=== PATIENT | female | born 1980 | race Caucasian/White ===

== ENCOUNTER → 2018-03-02 12:34 | Outpatient (CLI) | payer OTHER, SELFPAY ==
--- NOTE | 2018-03-02 12:39 | RAD_ITS ---
STUDY: X-RAY - CERVICAL SPINE REASON FOR EXAM: Female, 37 years old. Cervical radiculopathy. TECHNIQUE: 5 view(s) of the cervical spine were obtained including oblique views. COMPARISON: None FINDINGS: Normal anterior atlantoaxial articulation. Normal odontoid process. There is straightening of the normal cervical lordosis. Normal vertebral bodies and endplates. Normal disc space heights. Normal visualized intervertebral neuroforamina. The soft tissue structures are unremarkable. RAD/Cerv Spine 4 or 5 Views IMPRESSION: Straightening of the normal cervical lordosis. Electronically Signed: Vin Gonsalves MD at 14:28 EDT Tel [phone], Service support ,
== END ==
PROVIDERS: Visit Provider Chiropractor
DX: M54.12 Radiculopathy, cervical region (principal)
CPT/HCPCS: 72050

== ENCOUNTER → 2018-11-20 14:11 | Outpatient (CLI) | payer OTHER, SELFPAY ==
[2018-11-20 09:12] VITALS: BMI 28.8
== END ==
PROVIDERS: Referring Provider Physician Assistant Surgical; Visit Provider Physician Assistant Surgical
DX: J02.9 Acute pharyngitis, unspecified (principal)
CPT/HCPCS: 87081

== ENCOUNTER 2019-09-08 16:42 | Emergency (ER) | payer OTHER, SELFPAY ==
[2018-11-20 09:12] VITALS: BMI 28.8
[2019-09-08 16:42] VITALS: BP 127/78; PULSE 80; RESP 16; TEMP 37; O2SAT 99; BMI 27.4
--- NOTE | 2019-09-08 16:45 | NURSING ---
NO OLD EKGS
--- NOTE | 2019-09-08 16:47 | RAD_ITS ---
STUDY: X-RAY CHEST REASON FOR EXAM: Female, 39 years old. Chest pain TECHNIQUE: Single view of the chest was obtained COMPARISON: June 20, 2017 chest radiograph FINDINGS: No lung consolidation, pleural effusion or pneumothorax. Cardiac size within normal limits. Osseous structures demonstrate no acute abnormalities. IMPRESSION: No acute cardiopulmonary pathology seen. Electronically Signed: Luis Fernando Gandhi, at 17:21 EST Tel , Service support , RAD/Chest 1 View (Portable)
--- NOTE | 2019-09-08 16:47 | EKG12_ITS ---
Test Reason : CP Blood Pressure : / mmHG Vent. Rate : 082 BPM Atrial Rate : 082 BPM P-R Int : 180 ms QRS Dur : 084 ms QT Int : 368 ms P-R-T Axes : 058 078 067 degrees QTc Int : 429 ms Normal sinus rhythm with sinus arrhythmia Normal ECG Confirmed by RAJAT NGUYNE, LONNIE ([id number]), editorial manager SANDRO GIFFORD ([id number]) on 09/10/2019 11:44:24 AM Referred By: PRABHAKAR/ABEL Confirmed By:LONNIE EARL MD
[2019-09-08 16:54] VITALS: O2SAT 100
[2019-09-08 17:06] LABS: Absolute Lymphocyte Count 2.17 X10^3/uL (0.83-4.51); Absolute Neutrophil Count 5.1 X10^3/uL (2.0-7.7); Basophil# 0.03 X10^3/uL; Basophil% 0.4 % (0-1); Eosinophil# 0.12 X10^3/uL; Eosinophils% 1.5 % (0-5); Hematocrit 37.7 % (37-47); Hemoglobin 13.4 g/dL (12.0-15.0); Lymphocyte # 2.17 X10^3/ul (4.0); Mean Corp Hgb Conc 35.5 g/dL (32-36); Mean Corpuscular Hgb 31.2 pg (27.0-32.0); Mean Corpuscular Volume 87.9 fL (81-99); Mean Platelet Vol. 9.3 fl (6.2-12.0); Monocyte# 0.54 X10^3/uL; Monocyte% 6.7 % (0-10); NRBC Flagged by Analyzer 0 % (0-5); Neutrophil # 5.14 X10^3/uL (2.7-7.7); Platelet Count 158 K/mm3 (150-450); RBC Distribution Width CV 12.3 % (11.6-14.6); RBC Distribution Width SD 39.1 fl (35.1-43.9); Red Blood Count 4.29 M/mm3 (4.2-5.4)
[2019-09-08 17:13] LABS: International Normalized Ratio 1.1; Prothrombin Time (Protime)PT. 13.9 SECONDS (11.7-14.9)
--- NOTE | 2019-09-08 17:21 | ED.DCSUM_ITS ---
History of Present Illness Chief Complaint: Chest Pain Informant: Patient Onset: Weeks - 1 Quality: Heaviness Location: Substernal Current Severity: Moderate Maximum Severity: Moderate Worsened By: - - lying down. Not Worsened By: Exertion, Movement of Arm, Movement of Torso, Eating, Palpation, Breathing Relieved By: Nothing - has been continuous Associated Symptoms: Dyspnea - off and on, more persistent since yesterday, worse when I get anxious, - - anxiety. Negative for: Nausea, Vomiting, Diaphoresis, Cough, Fever, Lightheadedness, Acid Reflux, Palpitations Narrative: Patient has had this non-pleuritic heaviness in her chest for the past week, however since yesterday she has additionally had a left-sided dull continuous pain that is also nonpleuritic. Neither discomfort radiates. She has had periods where she randomly feels very anxious and that makes her feel short of breath, she feels like she is anxious about her symptoms though, which she has never had before. She denies any leg pain or swelling, recent travel, hospitalization, immobilization, or surgery. No history of DVT or PE. She is healthy and takes no daily prescriptions were recent [id number] medications. Past Medical History - Allergies and Home Meds Allergies/Adverse Reactions: Allergies codeine Adverse Reaction (Verified 09/08/19 16:44) Other felt light-headed and shaky Primary Care Physician: Care Physician,No Primary [NON-STAFF] - Surgical History: - - D&C, no other surgeries Lives: Spouse/ Significant Other Smoking Status: Former smoker Alcohol: None Drugs: None Review of Systems General: Denies: Chills, Fever, Sweats Eyes: Denies: Visual changes - bilaterally, Diplopia ENT: Denies: Rhinorrhea, Sore throat Cardiovascular: Reports: Chest pain. Denies: Palpitations Respiratory: Reports: Dyspnea. Denies: Cough, Dyspnea on exertion, Orthopnea Gastrointestinal: Denies: Abdominal pain, Nausea, Vomiting, Diarrhea, Melena, Hematochezia Genitourinary: Denies: Dysuria, Hematuria, Frequency Musculoskeletal: Denies: Back pain, Swelling, Extremity Pain Skin: Denies: Rash, Wounds Neurological: Denies: Headache, Weakness, Numbness Psych: Reports: Anxiety. Denies: Suicidal thoughts, Suicidal ideations Physical Exam Vital Signs/Narrative: Vital Signs Temp Pulse Resp BP Pulse Ox 09/08/19 16:54 100 09/08/19 16:42 98.6 F 80 16 127/78 H 99 Inital Vital Signs reviewed: Yes General: Well nourished, Well developed, No Acute Distress Head: Normocephalic, Atraumatic Eyes: Perrl, EOMI ENT: Moist mucous membranes, No rhinorrhea Neck: Supple, Nontender, No lymphadenopathy, No JVD Cardiovascular: Regular rate, Regular rhythm, No murmurs, Normal S1, Normal S2. Negative for: Tachycardia Respiratory: No distress, CTA bilaterally, Chest nontender Abdomen: Soft, Nontender, Nondistended, Normal bowel sounds Back: Nontender, Normal Inspection. Negative for: CVA tenderness Extremities: Nontender, No edema. Negative for: Calf Tenderness Skin: Normal color, No rash, No Trauma Neurological: Alert, Oriented x3, Cranial nerves II-XII grossly intact, Normal Strength, Normal Sensation Psychological: Normal affect - Except a little anxious, Normal Mood Diagnostic/Tx/Re-eval Impressions Chest X-Ray 09/08/19 16:47 09/08/19 16:47 Chest 1 View (Portable) [RAD] Stat Laboratory Results 09/08/19 09/08/19 09/08/19 16:50 16:50 16:50 WBC 8.0 RBC 4.29 Hgb 13.4 Hct 37.7 MCV 87.9 MCH 31.2 MCHC 35.5 RDW Std Deviation 39.[address] 12.3 Plt Count 158 MPV 9.3 Immature Gran % (Auto) 0.400 Neut % (Auto) 64.0 Lymph % (Auto) 27.0 [place] % (Auto) 6.7 Eos % (Auto) 1.5 Baso % (Auto) 0.4 Absolute Neuts (auto) 5.1 Absolute Lymphs (auto) 2.17 Nucleated RBC % 0 PT 13.9 INR 1.1 D-Dimer Quant (PE/DVT) Sodium 141 Potassium 3.6 Chloride 107 Carbon Dioxide 28.0 Anion Gap 6 BUN 15 Creatinine 0.69 Estim Creat Clear Calc 102.47 Est GFR (MDRD) Af Amer 121 Est GFR (MDRD) Non-Af 100 BUN/Creatinine Ratio 21.7 H Glucose 109 H Calcium 9.2 Troponin I < 0.015 09/08/19 16:50 WBC RBC Hgb Hct MCV MCH MCHC RDW Std Deviation RDW Coeff of Ct Plt Count MPV Immature Gran % (Auto) Neut % (Auto) Lymph % (Auto) [place] % (Auto) Eos % (Auto) Baso % (Auto) Absolute Neuts (auto) Absolute Lymphs (auto) Nucleated RBC % PT INR D-Dimer Quant (PE/DVT) 0.38 Sodium Potassium Chloride Carbon Dioxide Anion Gap BUN Creatinine Estim Creat Clear Calc Est GFR (MDRD) Af Amer Est GFR (MDRD) Non-Af BUN/Creatinine Ratio Glucose Calcium Troponin I - Rhythm Strip Rhythm Strip: Sinus Rhythm Rate: 82 Ectopy: None - EKG Initial EKG Interpretation: Sinus Rhythm, No Acute Injury Pattern - normal EKG. normal axis/intervals. Treatment: GI Cocktail - Medical Decision Making Her work-up is completely negative for anything dangerous here tonight. Do not suspect dissection, pulmonary embolus is ruled out with a negative d-dimer. Her vital signs are normal, and her cardiac work-up is completely normal. She was given a GI cocktail given that esophageal disorders are on the differential diagnosis, she states she does not think the medication helped but the dull pain she was having on the left side is gone and now she just has the mild pressure. I offered her nitroglycerin in case this is esophageal spasm but she declines. She would like something for anxiety, she thinks that may be linked, I told her I have no problem prescribing her short course of Vistaril, and she is advised to follow-up with her doctor. She is comfortable with going home and with this plan. ED Disposition - Plan for ED Patient: Disposition: Home or Assisted Living Diagnosis: Chest pain, unspecified Instructions: CHEST PAIN, NonCardiac Prescriptions: Hydroxyzine Pamoate [Vistaril] 50 mg PO 4X/DAY PRN PRN #20 cap PRN Reason: Anxiety Prescription Printed Referrals: Doctor,Your [STAFF PHYSICIAN] - 5-7 Days
[2019-09-08 17:24] LABS: Anion Gap 6 (5-15); BUN 15 mg/dL (7-18); BUN/Creat Ratio 21.7 RATIO (10-20); Calcium,Total 9.2 mg/dL (8.5-10.1); Chloride 107 mmol/L (98-107); Creatinine, Serum 0.69 mg/dL (0.55-1.02); EST Glomerular Filtration Rate 100 mL/min (>60); Est Glom Filt Rate - Afr Amer 121 mL/min (>60); Estimated Creatinine Clearance 102.47 ml/min; Glucose 109 mg/dL (74-106); Potassium 3.6 mmol/L (3.5-5.1); Sodium Level 141 mmol/L (136-145)
[2019-09-08 17:47] LABS: D-Dimer Quantitative (DVT/PE) 0.38 FEU/ug/m (0.27-0.49)
[2019-09-08 19:10] VITALS: PULSE 77; RESP 14; O2SAT 100
[2019-09-08] MEDS: Mag Hydrox/Al Hydrox/Simeth 30 ML UDC PO (19:46)
[2019-09-08 20:20] VITALS: PULSE 76; RESP 12; O2SAT 97
[2019-09-08] MEDS: hydrOXYzine PAM 25 MG Capsule 50 MG PO (20:21)
== END 2019-09-08 20:23 | disposition home or self-care (01) ==
PROVIDERS: Emergency Provider Emergency Medicine; Family Provider Family Medicine; PCP Family Medicine
DX: R07.89 Other chest pain (principal); R06.00 Dyspnea, unspecified; F41.9 Anxiety disorder, unspecified; Z87.891 Personal history of nicotine dependence
CPT/HCPCS: 71045; 80048; 84484; 85025; 85379; 85610; 93005; 99285; A4216

== ENCOUNTER → 2019-09-13 14:39 | Outpatient (CLI) | payer OTHER, SELFPAY ==
[2019-09-13 07:34] VITALS: BMI 27.4
== END ==
PROVIDERS: Referring Provider Physician Assistant Surgical; Visit Provider Physician Assistant Surgical
DX: J02.9 Acute pharyngitis, unspecified (principal)
CPT/HCPCS: 87070

== ENCOUNTER → 2020-09-04 11:41 | Outpatient (CLI) | payer OTHER, SELFPAY ==
[2019-09-13 07:34] VITALS: BMI 27.4
[2020-09-04 12:16] LABS: Absolute Lymphocyte Count 1.23 X10^3/uL (0.83-4.51); Basophil# 0.02 X10^3/uL; Basophil% 0.2 % (0-1); Eosinophil# 0.06 X10^3/uL; Eosinophils% 0.7 % (0-5); Hematocrit 34.5 % (37-47); Hemoglobin 12.3 g/dL (12.0-15.0); Lymphocyte # 1.23 X10^3/ul (4.0); Lymphocyte % 13.9 % (19-41); Mean Corp Hgb Conc 35.7 g/dL (32-36); Mean Corpuscular Volume 89.8 fL (81-99); Mean Platelet Vol. 9.5 fl (6.2-12.0); Monocyte# 0.45 X10^3/uL; Monocyte% 5.1 % (0-10); NRBC Flagged by Analyzer 0 % (0-5); Neutrophil # 7.02 X10^3/uL (2.7-7.7); Neutrophil % 79.4 % (47-70); Platelet Count 156 K/mm3 (150-450); RBC Distribution Width CV 13.5 % (11.6-14.6); Red Blood Count 3.84 M/mm3 (4.2-5.4); White Blood Count 8.8 K/mm3 (4.4-11.0)
[2020-09-04 13:22] LABS: HIV - WCH Non-Reactive (Nonreactive); Hepatitis B Surface Antigen Non-Reactive (Nonreactive); Hepatitis C Antibody Non-Reactive (Nonreactive); Rubella IgG Reactive (Nonreactive)
[2020-09-08 03:07] LABS: Chlamydia By Nucleic Acid AMP Negative (Negative)
[2020-09-08 10:41] LABS: Gonococcus By Nucleic Acid AMP Negative (Negative)
[2020-09-09 10:11] LABS: HPV APTIMA, High Risk Negative (Negative); HPV Reflexed? YES, CHARGE PATIENT
[2020-09-10 02:50] LABS: Prenatal RPR NONREACTIVE (NONREACTIVE)
== END ==
PROVIDERS: Visit Provider Student in an Organized Health Care Education/Training Program
DX: Z34.82 Encounter for supervision of other normal pregnancy, second trimester (principal); Z12.4 Encounter for screening for malignant neoplasm of cervix; Z11.3 Encounter for screening for infections with a predominantly sexual mode of transmission
CPT/HCPCS: 36415; 85025; 86703; 86762; 86803; 87086; 87088; 87340; 87491; 87591; 87624; 88175; G0145

== ENCOUNTER → 2020-10-19 09:50 | Outpatient (CLI) | payer OTHER, SELFPAY ==
[2019-09-13 07:34] VITALS: BMI 27.4
--- NOTE | 2020-10-19 09:57 | EKG12_ITS ---
Test Reason : Blood Pressure : / mmHG Vent. Rate : 074 BPM Atrial Rate : 074 BPM P-R Int : 168 ms QRS Dur : 088 ms QT Int : 384 ms P-R-T Axes : 061 071 056 degrees QTc Int : 426 ms Normal sinus rhythm with sinus arrhythmia Normal ECG Confirmed by JIMBO NGUYEN, HANY ([id number]), greeting card editor ALLA MARTINEZ ([id number]) on 10/22/2020 10:22:56 AM Referred By: Laure John Confirmed By:LIZANDRO CHOI MD
== END ==
PROVIDERS: PCP Family Medicine; Referring Provider Student in an Organized Health Care Education/Training Program; Visit Provider Student in an Organized Health Care Education/Training Program
DX: R00.0 Tachycardia, unspecified (principal)
CPT/HCPCS: 93005

== ENCOUNTER → 2020-12-25 14:03 | Outpatient (CLI) | payer OTHER, SELFPAY ==
[2019-09-13 07:34] VITALS: BMI 27.4
--- NOTE | 2020-12-25 14:06 | VDLE_ITS ---
Reason For Study: EDEMA/SWELLING RIGHT LEFT GSV is normal. GSV is normal. CFV is compressible, spontaneous, phasic, CFV is compressible, spontaneous, phasic, competent and demonstrates normal competent, and demonstrates normal augmentation. augmentation. FV is compressible, spontaneous, phasic, FV is compressible, spontaneous, phasic, competent and demonstrates normal competent and demonstrates normal augmentation. augmentation. POP V is compressible, spontaneous, phasic, POP V is compressible, spontaneous, phasic, competent and demonstrates normal competent and demonstrates normal augmentation. augmentation. T/P Trunk is compressible. T/P Trunk is compressible. PTV is compressible. PTV is compressible. RT PerV is compressible. LT PerV is compressible. Procedure Exam performed in department. A preliminary report was called and/or faxed to DR ROGERS. Interpretation Summary Deep veins of the lower extremities are bilaterally patent and compressible segmentally. There is no evidence of deep vein thrombosis on either side. Valvular competence appears intact within the proximal deep venous systems bilaterally. The great saphenous veins appear bilaterally patent and compressible segmentally. Ordering Physician: Jason Rogers Referring Physician: NATHANIEL TYLER Performed By: Velia Mello, MAN, RVT
== END ==
PROVIDERS: PCP Family Medicine; Visit Provider Internal Medicine Pulmonary Disease
DX: R06.00 Dyspnea, unspecified (principal); R60.9 Edema, unspecified
CPT/HCPCS: 93970

== ENCOUNTER → 2020-12-31 09:02 | Outpatient (CLI) | payer OTHER, SELFPAY ==
[2019-09-13 07:34] VITALS: BMI 27.4
[2020-12-31 11:00] LABS: Hemoglobin 10.8 g/dL (12.0-15.0); Mean Corp Hgb Conc 34.8 g/dL (32-36); Mean Corpuscular Hgb 33.1 pg (27.0-32.0); Mean Corpuscular Volume 95.1 fL (81-99); Mean Platelet Vol. 9.1 fl (6.2-12.0); Platelet Count 159 K/mm3 (150-450); RBC Distribution Width CV 14.9 % (11.6-14.6); RBC Distribution Width SD 51.1 fl (35.1-43.9); Red Blood Count 3.26 M/mm3 (4.2-5.4); White Blood Count 8.9 K/mm3 (4.4-11.0)
[2020-12-31 11:14] LABS: Glucose Challenge Gest 1H 50g 178 mg/dL (70-140)
== END ==
PROVIDERS: PCP Family Medicine; Visit Provider Student in an Organized Health Care Education/Training Program
DX: Z34.82 Encounter for supervision of other normal pregnancy, second trimester (principal)
CPT/HCPCS: 36415; 82950; 85027; 86850

== ENCOUNTER → 2020-12-31 14:03 | Outpatient (CLI) | payer OTHER, SELFPAY ==
[2019-09-13 07:34] VITALS: BMI 27.4
--- NOTE | 2020-12-31 14:04 | ECHOD_ITS ---
Reason For Study: DYSPNEA/EDEMA Procedure This was a 2D Doppler, Color Flow transthoracic echocardiogram. Exam performed in department. Left Ventricle Normal LV size. The estimated ejection fraction is 55 %. No evidence for diastolic dysfunction. No regional wall motion abnormalities noted. Right Ventricle Normal RV size. Normal systolic function. Atria Normal left atrium. Normal right atrium. No doppler evidence for ASD. Mitral Valve There is no mitral valve stenosis. Trivial mitral valve insufficiency. Tricuspid Valve There is no tricuspid stenosis. Trivial tricuspid valve insufficiency. Unable to estimate RV systolic pressure due to insufficient tricuspid regurgitant envelope. Aortic Valve Trisinus/trileaflet aortic valve. There is no aortic stenosis. No aortic valve insufficiency. Pulmonic Valve There is no pulmonic valvular stenosis. No pulmonic valve insufficiency. Great Vessels Normal aortic root. Pericardium/Pleural No pericardial effusion. MMode/2D Measurements & Calculations LVIDd: 4.6 cm IVSd: 0.72 cm Ao root diam: 2.9 cm LVIDs: 2.9 cm LVPWd: 0.92 cm RVDd: 3.3 cm FS: 35.8 % LAV(MOD-bp): 46.6 ml LVAd ap4: 32.3 cm2 SV(MOD-sp4): 68.9 ml LAV(MOD-bp) Indexed: 24.4 ml/m2 EDV(MOD-sp4): 100.2 ml LAV(MOD-sp2): 40.4 ml EDV(sp4-el): 101.9 ml LAV(MOD-sp4): 54.4 ml LVAs ap4: 16.0 cm2 ESV(MOD-sp4): 31.3 ml ESV(sp4-el): 30.3 ml EF(MOD-sp4): 68.8 % EF(sp4-el): 70.3 % SV(sp4-el): 71.6 ml LA A4 area: 19.7 cm2 LA dimension(2D): 3.3 cm RA A4 area: 17.7 cm2 Time Measurements MV dec time: 0.20 sec Doppler Measurements & Calculations MV E max dylon: 121.4 cm/sec Lat Peak E' Dylon: 19.7 cm/sec Med Peak E' Dylon: 15.1 cm/sec MV A max dylon: 77.8 cm/sec E/E' lat: 6.2 E/E' med: 8.0 MV E/A: 1.6 Ao V2 max: 186.4 cm/sec LV V1 max: 179.0 cm/sec PA V2 max: 126.2 cm/sec Ao max P.9 mmHg LV V1 max P.8 mmHg TR max dylon: 273.1 cm/sec TR max P.2 mmHg Interpretation Summary The estimated ejection fraction is 55 %. No evidence for diastolic dysfunction. Trivial mitral valve insufficiency. Ordering Physician: Jason Rogers Referring Physician: NATHANIEL TYLER Performed By: Lurdes Lynn RDCS
== END ==
PROVIDERS: PCP Family Medicine; Referring Provider Internal Medicine Pulmonary Disease; Visit Provider Internal Medicine Pulmonary Disease
DX: R06.00 Dyspnea, unspecified (principal); R60.9 Edema, unspecified
CPT/HCPCS: 93306

== ENCOUNTER → 2021-01-04 06:46 | Outpatient (CLI) | payer OTHER, SELFPAY ==
[2019-09-13 07:34] VITALS: BMI 27.4
[2021-01-04 08:25] LABS: Glucose GTT-Gestational 1 Hr 213 mg/dL (<190)
[2021-01-04 08:27] LABS: Glucose GTT-Gestation. Fasting 105 mg/dL (<105)
[2021-01-04 09:38] LABS: Glucose GTT-Gestational 2 Hr 149 mg/dL (<165)
[2021-01-04 10:58] LABS: Glucose GTT-Gestational 3 Hr 99 L (<145)
== END ==
PROVIDERS: PCP Family Medicine; Referring Provider Student in an Organized Health Care Education/Training Program; Visit Provider Student in an Organized Health Care Education/Training Program
DX: O99.810 Abnormal glucose complicating pregnancy (principal); Z3A.00 Weeks of gestation of pregnancy not specified
CPT/HCPCS: 36415; 82951; 82952

== ENCOUNTER 2021-01-20 10:30 | Outpatient (RCR) | payer OTHER, SELFPAY ==
[2019-09-13 07:34] VITALS: BMI 27.4
== END 2021-01-20 23:59 ==
LOC: DC 10:30
PROVIDERS: PCP Family Medicine; Visit Provider Student in an Organized Health Care Education/Training Program
DX: O24.410 Gestational diabetes mellitus in pregnancy, diet controlled (principal); Z3A.00 Weeks of gestation of pregnancy not specified
CPT/HCPCS: 97802; G0108

== ENCOUNTER → 2021-02-02 16:02 | Outpatient (CLI) | payer OTHER, SELFPAY ==
[2019-09-13 07:34] VITALS: BMI 27.4
--- NOTE | 2021-02-02 16:05 | VDLE_ITS ---
Reason For Study: edema RIGHT GSV is normal. CFV is compressible, spontaneous, phasic, competent and demonstrates normal augmentation. FV is compressible, spontaneous, phasic, competent and demonstrates normal augmentation. POP V is compressible, spontaneous, phasic, competent and demonstrates normal augmentation. T/P Trunk is compressible. PTV is compressible. RT PerV is compressible. Procedure This is a venous duplex using B-mode, color flow and spectral Doppler. Exam performed in department. The exam was abbreviated due to the COVID 19 protocol. The exam was diagnostic. A preliminary report was called and/or faxed to Laure John. VL/Venous Duplex US, Unilateral Interpretation Summary Deep veins of the right lower extremity are patent and compressible segmentally . There is no evidence of right lower extremity deep vein thrombosis. Valvular competence trev ears intact within the proximal deep venous system on the right . The right great saphenous vein a ppears patent and compressible segmentally. Ordering Physician: Laure John Performed By: Alexander Mares RVT
== END ==
PROVIDERS: PCP Family Medicine; Referring Provider Student in an Organized Health Care Education/Training Program; Visit Provider Student in an Organized Health Care Education/Training Program
DX: R60.0 Localized edema (principal)
CPT/HCPCS: 93971

== ENCOUNTER 2021-02-04 13:00 | Outpatient (RCR) | payer OTHER, SELFPAY ==
[2019-09-13 07:34] VITALS: BMI 27.4
== END 2021-02-11 23:59 | disposition home or self-care (01) ==
LOC: DC 13:00
PROVIDERS: PCP Family Medicine; Visit Provider Student in an Organized Health Care Education/Training Program
DX: O24.410 Gestational diabetes mellitus in pregnancy, diet controlled (principal); Z3A.00 Weeks of gestation of pregnancy not specified

== ENCOUNTER → 2021-02-15 | Outpatient (CLI) | payer OTHER, SELFPAY ==
[2019-09-13 07:34] VITALS: BMI 27.4
== END | disposition home or self-care (01) ==
LOC: LABSPEC 16:42
PROVIDERS: PCP Family Medicine; Visit Provider Student in an Organized Health Care Education/Training Program
DX: Z36.85 Encounter for antenatal screening for Streptococcus B (principal)
CPT/HCPCS: 87081

== ENCOUNTER → 2021-03-03 14:57 | Outpatient (CLI) | payer OTHER, SELFPAY ==
[2019-09-13 07:34] VITALS: BMI 27.4
== END ==
PROVIDERS: PCP Family Medicine; Referring Provider Student in an Organized Health Care Education/Training Program; Visit Provider Student in an Organized Health Care Education/Training Program
DX: Z03.818 Encounter for observation for suspected exposure to other biological agents ruled out (principal)
CPT/HCPCS: 87635; C9803; U0002

== ENCOUNTER 2021-03-10 07:15 | Inpatient (IN) | payer OTHER, SELFPAY ==
[2019-09-13 07:34] VITALS: BMI 27.4
[2021-03-10] VITALS (27 sets, daily range): BP systolic 121–153; BP diastolic 62–83; PULSE 71–89; RESP 16; TEMP 36.4–37.1; BMI 35.1
[2021-03-10] MEDS: Lactated Ringers 1,000 ML 50 ML IV (07:45)
[2021-03-10 07:57] LABS: Absolute Lymphocyte Count 1.02 X10^3/uL (0.83-4.51); Absolute Neutrophil Count 5.9 X10^3/uL (2.0-7.7); Basophil# 0.02 X10^3/uL; Basophil% 0.3 % (0-1); Eosinophil# 0.05 X10^3/uL; Eosinophils% 0.7 % (0-5); Hemoglobin 11.2 g/dL (12.0-15.0); Lymphocyte # 1.02 X10^3/ul (0.83-4.51); Lymphocyte % 13.3 % (19-41); Mean Corp Hgb Conc 33.9 g/dL (32-36); Mean Corpuscular Hgb 29.6 pg (27.0-32.0); Mean Corpuscular Volume 87.3 fL (81-99); Mean Platelet Vol. 9.3 fl (6.2-12.0); Monocyte# 0.58 X10^3/uL; Monocyte% 7.6 % (0-10); NRBC Flagged by Analyzer 0 % (0-5); Neutrophil # 5.94 X10^3/uL (2.7-7.7); Neutrophil % 77.2 % (47-70); Platelet Count 163 K/mm3 (150-450); RBC Distribution Width CV 13.7 % (11.6-14.6); RBC Distribution Width SD 42.9 fl (35.1-43.9); Red Blood Count 3.78 M/mm3 (4.2-5.4); White Blood Count 7.7 K/mm3 (4.4-11.0)
--- NOTE | 2021-03-10 08:30 | NURSING ---
BGT 85
--- NOTE | 2021-03-10 08:41 | HP.PCM.OB_ITS ---
HPI - General General Date of Admission: 03/10/21 HPI Narrative SHALOM TYLER, is a 40 F 17 para [id number] presenting for scheduled induction of labor for AMA and GDMA2 on insulin, well controlled. She is without complaints. Maternal Data Information DUNIA Calculator Estimated Delivery Date Method Current WG Current Estimate 03/11/21 LMP (Certain) 39w 6d Final DUNIA: 03/11/21 Final DUNIA Source: US <20 weeks Gestational age: 39.6 [facility], [facility] Medical History (Updated 03/10/21 @ 20:[address] Martina Hernandez MD) Anxiety Asthma Chronic neck and back pain Gestational diabetes Headache History of endometritis history of parametritis History of pre-eclampsia Shoulder pain Superficial varicosities Home Medications aspirin [Baby Aspirin] 81 mg PO DAILY 03/10/21 [History Last Taken 03/09/21 08:00 81 mg] fluticasone furoate [Arnuity Ellipta] 1 inh INHALATION DAILY 03/10/21 [History Last Taken 03/10/21 06:00 1 puff] insulin glargine [Basaglar KwikPen U-100 Insulin] 15 unit SUBCUT QHS 03/10/21 [History Last Taken 03/09/21 22:00 15 units] [id number] [] 1 tab PO DAILY 03/10/21 [History Last Taken 03/09/21 08:00 1 tab] Allergy/AdvReac Type Severity Reaction Status Date / Time codeine AdvReac Other Verified 03/10/21 07:47 Family History (Updated 03/10/21 @ 08:[address] Martina Hernandez MD) Grandmother Breast cancer Other Diabetes Surgical History History of D&C Social History Smoking Status: Never smoker History 17 Elective abortions Hx Para 8 Spontaneous abortions 8 Hx # Term Pregnancies 8 Ectopic pregnancies Hx # Pregnancies Multiple births 0 # of living children 8 Visit Details Expected Delivery Route/Plan Anticipate Plans Glucose monitoring Pitocin Reviewed labor and delivery related risks including risk for shoulder dystocia and associated sequelae. Consents signed. Pt and given opportunity to ask questions and questions answered to their satisfaction. NST FHR Rate Baby A Baseline: 150 Variability:: Moderate Accelerations:: 15 x 15 Decelerations:: None NST Reactive:: Yes FHR Category:: Category I Uterine Activity:: 11/01 Assessment Assessment Detail: Category I Vital Signs Vital Signs Vital Signs: 03/10/21 07:39 Pulse Rate 74 Blood Pressure 138/74 H BP Systolic 138 BP Diastolic 74 Physical Exam Const alert, oriented x3, no apparent distress, healthy appearing and well nourished General Appearance: cooperative Orientation / Consciousness: awake, oriented to person, oriented to place and oriented to time HEENT normocephalic Resp normal respiratory effort and clear to auscultation bilaterally Cardio regular rate and regular rhythm GI soft to palpation and non-tender Inspection: gravid Manual OB Exam: dilated 3, effaced 50 and station -3 Labs Labs Labs: Blood Type B NEGATIVE Antibody Screen NEGATIVE Hct 33.0 % (37-47) L Hgb 11.2 g/dL (12.0-15.0) L Obstetrics US Rubella IgG Antibody Reactive (Nonreactive) Hep Bs Antigen Non-Reactive (Nonreactive) Neisseria gonorrhoeae DNA (EVIN) Negative (Negative) HIV 1&2 Antibody Non-Reactive (Nonreactive) C.trachomatis DNA (PCR) Negative (Negative) Glucose 1 Hr 50 gm 178 mg/dL (70-140) H Group B Strep DNA Negative (Negative) Rhogam given: No Assessment & Plan (1) Gestational diabetes: QUALIFIERS: Gestational diabetes mellitus control: insulin- controlled Trimester: third trimester Qualified Code(s): O24.414 - Gestational diabetes mellitus in , insulin controlled (2) 39 weeks gestation of :
[2021-03-10] MEDS: Oxytocin 30 units/NS 500 ml 30 UNITS/500 ML IV.SOLN IV (09:10)
--- NOTE | 2021-03-10 09:35 | NURSING ---
BGT 80
[2021-03-10 11:37] LABS: Bedside Glucose 80 mg/dL (70-110)
[2021-03-10 11:37] LABS: Bedside Glucose 85 mg/dL (70-110)
--- NOTE | 2021-03-10 13:03 | PCM.PN.OB ---
Subjective Subjective Contractions intensify. Objective Data Objective Data Vital Signs: Vital Signs Temp Pulse BP 98.5 F 75 136/75 H 03/10/21 12:37 03/10/21 12:38 03/10/21 12:38 Weight: 98.6 kg Body Mass Index (BMI) 35.1 Intake & Output: Intake and Output for Last 24 Hours 03/08/21 03/09/21 03/10/21 23:59 23:59 23:59 Intake Total 10.53 / 10.53 Balance 10.53 / 10.53 Lab / Micro Data Result Diagrams: 03/10/21 07:45 Labs: Laboratory Results - last 24 hr 03/10/21 03/10/21 03/10/21 07:45 07:45 08:36 WBC 7.7 RBC 3.78 L Hgb 11.2 L Hct 33.0 L MCV 87.3 MCH 29.6 MCHC 33.9 RDW Std Deviation 42.[address] 13.7 Plt Count 163 MPV 9.3 Immature Gran % (Auto) 0.900 Neut % (Auto) 77.2 H Lymph % (Auto) 13.3 L [place] % (Auto) 7.6 Eos % (Auto) 0.7 Baso % (Auto) 0.3 Absolute Neuts (auto) 5.9 Absolute Lymphs (auto) 1.02 Nucleated RBC % 0 POC Glucose 85 Blood Type B NEGATIVE Antibody Screen NEGATIVE 03/10/21 09:39 WBC RBC Hgb Hct MCV MCH MCHC RDW Std Deviation RDW Coeff of Ct Plt Count MPV Immature Gran % (Auto) Neut % (Auto) Lymph % (Auto) [place] % (Auto) Eos % (Auto) Baso % (Auto) Absolute Neuts (auto) Absolute Lymphs (auto) Nucleated RBC % POC Glucose 80 Blood Type Antibody Screen Physical Exam Const alert, oriented x3 and no apparent distress Manual OB Exam: dilated 4cm, effaced 50, station -3 and other moderate and midposition NST FHR Rate Baby A Baseline: 140 Variability:: Moderate Accelerations:: 15 x 15 Decelerations:: None NST Reactive:: Yes FHR Category:: Category I Uterine Activity:: 12/30 Assessment & Plan (1) 39 weeks gestation of : PLAN: Amniotomy with clear fluid. Will continue pitocin as tolerated by mother and fetus. Cat I FHR (2) Gestational diabetes: PLAN: Euglycemia, continue to monitor per protocol.
[2021-03-10 13:41] LABS: Bedside Glucose 74 mg/dL (70-110)
[2021-03-10 14:46] LABS: Bedside Glucose 82 mg/dL (70-110)
[2021-03-10 15:41] LABS: Bedside Glucose 74 mg/dL (70-110)
[2021-03-10] MEDS: Oxytocin 30 units/NS 500 ml 30 UNITS/500 ML IV.SOLN 334 UNITS IV (16:44)
[2021-03-10 17:26] LABS: Bedside Glucose 94 mg/dL (70-110)
[2021-03-10] MEDS: Ibuprofen 600 MG Tablet PO (19:16)
[2021-03-10] MEDS: Methylergonovine 0.2 MG/ML Ampul IM (19:18)
--- NOTE | 2021-03-10 20:40 | EX.PCM.OBRPT ---
Assessment & Plan (1) Gestational diabetes: QUALIFIERS: Gestational diabetes mellitus control: insulin-controlled Trimester: third trimester Qualified Code(s): O24.414 - Gestational diabetes mellitus in , insulin controlled PLAN: Fasting am blood sugar tomorrow (2) (spontaneous vaginal delivery): PLAN: Routine care Maternal Data Information DUNIA Calculator Estimated Delivery Date Method Current WG Current Estimate 03/11/21 LMP (Certain) 40w 1d Vaginal Delivery Maternal Presentation Maternal Presentation: Medically Indicated Induction Type of Induction: Pitocin and Amniotomy Medical Reason for Induction: Maternal Medical Condition: list: (AMA, gestational diabetes) Operative Information Date of Procedure: 03/10/21 Pre-Operative Diagnosis: 39 6/7 weeks gestation, GDMA2, AMA Post-Operative Diagnosis: 39 6/7 weeks gestation, GDMA2, AMA Surgery / Procedure Performed: Spontaneous Vaginal Delivery Type of Anesthesia: None Estimated Blood Loss: 300 ml Findings Description of Procedure: Patient was FD and pushed to to deliver head. mouth and nares were bulb suctioned on the perineum. The shoulders delivered with ease revealing a vigorous . The cord was doubly clamped and cut. Cord blood was obtained. The placenta delivered spontaneously and appeared intact on inspection. A first degree vaginal laceration was hemostatic, no repair indicated. Presentation: Vertex Amniotic Membrane Rupture Type: Artificial Amniotic Fluid Description: Clear Placental Delivery Description: Spontaneous Placenta Disposition: [facility] Cord Vessel Description: 3 Vessels Cord Entanglement: None A Gender: Male (1 minute): 8 (5 minute): 9 Delayed Cord Clamping: Yes Post Vaginal Delivery Medications Given After Delivery: IM [place] Episiotomy Description: None Laceration: Midline and Vaginal Extension/lac Complication Complications: None
[2021-03-10] MEDS: Acetaminophen 500 MG Tablet 1000 MG PO (23:21)
[2021-03-11] VITALS (7 sets, daily range): BP systolic 104–128; BP diastolic 59–69; PULSE 68–83; RESP 16–18; TEMP 36.2–36.6; O2SAT 98
[2021-03-11] MEDS: Ibuprofen 600 MG Tablet PO ×3 (01:34→16:59)
[2021-03-11 05:13] LABS: Hematocrit 30.6 % (37-47); Hemoglobin 10.5 g/dL (12.0-15.0); Mean Corp Hgb Conc 34.3 g/dL (32-36); Mean Corpuscular Hgb 30.2 pg (27.0-32.0); Mean Corpuscular Volume 87.9 fL (81-99); Mean Platelet Vol. 9.5 fl (6.2-12.0); Platelet Count 150 K/mm3 (150-450); RBC Distribution Width CV 13.9 % (11.6-14.6); RBC Distribution Width SD 43.8 fl (35.1-43.9); Red Blood Count 3.48 M/mm3 (4.2-5.4); White Blood Count 11.6 K/mm3 (4.4-11.0)
[2021-03-11 05:30] LABS: ALB/GLOB Ratio 0.7 RATIO (0.9-2.4); AST(SGOT) 25 U/L (15-37); Alanine Aminotransfer ALT/SGPT 16 U/L (13-56); Albumin, Serum 2.3 g/dL (3.2-5.0); Alkaline Phosphatase 137 U/L (45-117); Anion Gap 7 (5-15); BUN 14 mg/dL (7-18); BUN/Creat Ratio 22.1 RATIO (10-20); Calcium,Total 8.5 mg/dL (8.5-10.1); Chloride 106 mmol/L (98-107); Creatinine, Serum 0.63 mg/dL (0.55-1.02); EST Glomerular Filtration Rate 110 mL/min (>60); Est Glom Filt Rate - Afr Amer 133 mL/min (>60); Estimated Creatinine Clearance 111.12 ml/min; Globulin 3.5 g/dL (2.2-4.2); Glucose 84 mg/dL (74-106); Potassium 3.9 mmol/L (3.5-5.1); Protein, Total 5.8 g/dL (6.4-8.2); Sodium Level 136 mmol/L (136-145); Uric Acid 6.5 mg/dL (2.6-6.0)
[2021-03-11 07:00] LABS: Bedside Glucose 101 mg/dL (70-110)
[2021-03-11] MEDS: Prenatal Vits Tablet 1 TABLET PO (07:37)
[2021-03-11] MEDS: Dibucaine 30 GM Tube 1 APPLIC TOPICAL (07:45)
[2021-03-11] MEDS: Budesonide Respules 0.5 MG/2 ML AMPUL.NEB. INHALATION (07:49)
--- NOTE | 2021-03-11 09:32 | PN.OBGYN_ITS ---
Subjective Subjective No issues overnight. Denies headache, vision changes, shortness of breath, swelling. Denies heavy lochia. She feels well and is out of bed. No voiding difficulties. is feeding well. Objective Data Objective Data Vital Signs: Vital Signs Temp Pulse Resp BP Pulse Ox 97.3 F L 70 16 119/63 98 03/11/21 07:50 03/11/21 07:52 03/11/21 07:52 03/11/21 07:50 03/11/21 07:52 Oxygen Delivery Method Room Air Weight: 98.6 kg Body Mass Index (BMI) 35.1 Intake & Output: Intake and Output for Last 24 Hours 03/09/21 03/10/21 03/11/21 23:59 23:59 23:59 Intake Total 1005.57 / 1005.57 Balance 1005.57 / 1005.57 Lab / Micro Data Result Diagrams: 03/11/21 05:05 03/11/21 05:05 Labs: Laboratory Results - last 24 hr 03/10/21 03/10/21 03/10/21 08:36 09:39 13:36 WBC RBC Hgb Hct MCV MCH MCHC RDW Std Deviation RDW Coeff of Ct Plt Count MPV Sodium Potassium Chloride Carbon Dioxide Anion Gap BUN Creatinine Estim Creat Clear Calc Est GFR (MDRD) Af Amer Est GFR (MDRD) Non-Af BUN/Creatinine Ratio Glucose Uric Acid Calcium Total Bilirubin AST ALT Alkaline Phosphatase Total Protein Albumin Globulin Albumin/Globulin Ratio POC Glucose 85 80 74 03/10/21 03/10/21 03/10/21 14:41 15:34 17:18 WBC RBC Hgb Hct MCV MCH MCHC RDW Std Deviation RDW Coeff of Ct Plt Count MPV Sodium Potassium Chloride Carbon Dioxide Anion Gap BUN Creatinine Estim Creat Clear Calc Est GFR (MDRD) Af Amer Est GFR (MDRD) Non-Af BUN/Creatinine Ratio Glucose Uric Acid Calcium Total Bilirubin AST ALT Alkaline Phosphatase Total Protein Albumin Globulin Albumin/Globulin Ratio POC Glucose 82 74 94 03/11/21 03/11/21 03/11/21 05:05 05:05 06:49 WBC 11.6 H RBC 3.48 L Hgb 10.5 L Hct 30.6 L MCV 87.9 MCH 30.2 MCHC 34.3 RDW Std Deviation 43.[address] 13.9 Plt Count 150 MPV 9.5 Sodium 136 Potassium 3.9 Chloride 106 Carbon Dioxide 23.0 Anion Gap 7 BUN 14 Creatinine 0.63 Estim Creat Clear Calc 111.12 Est GFR (MDRD) Af Amer 133 Est GFR (MDRD) Non-Af 110 BUN/Creatinine Ratio 22.1 H Glucose 84 Uric Acid 6.5 H Calcium 8.5 Total Bilirubin 0.30 AST 25 ALT 16 Alkaline Phosphatase 137 H Total Protein 5.8 L Albumin 2.3 L Globulin 3.5 Albumin/Globulin Ratio 0.7 L POC Glucose 101 Physical Exam Const alert, oriented x3 and no apparent distress Resp normal respiratory effort and normal air movement Cardio regular rate, regular rhythm, S1 normal heart sound and S2 normal heart sound Uterus Palpation: uterus fundus firm and other OB fundus nontender Extremity no calf tenderness Neuro oriented x3 Assessment & Plan (1) (spontaneous vaginal delivery): PLAN: Routine care Rh negative, f/u bleed (2) Gestational diabetes: QUALIFIERS: Gestational diabetes mellitus control: insulin- controlled Trimester: third trimester Qualified Code(s): O24.414 - Gestational diabetes mellitus in , insulin controlled PLAN: Fasting am FS 101 Plan for 2h ogtt at 6-12 weeks (3) Gestational [-induced] hypertension without significant proteinuria, complicating the puerperium: PLAN: Uric acid elevated, but other labs wnl Continue to monitor BPs Prior hx preeclampsia
[2021-03-11] MEDS: Senna/Docusate Sodium 1 Tablet PO (10:22)
[2021-03-11] MEDS: Acetaminophen 500 MG Tablet 1000 MG PO (12:28)
[2021-03-12] MEDS: Ibuprofen 600 MG Tablet PO ×2 (00:01→10:12)
[2021-03-12 02:35] VITALS: BP 116/65; PULSE 66; RESP 20; TEMP 36.4
[2021-03-12 07:30] VITALS: BP 112/80; PULSE 62; RESP 16; TEMP 36.1
[2021-03-12] MEDS: Acetaminophen 500 MG Tablet 1000 MG PO (07:34)
[2021-03-12] MEDS: Prenatal Vits Tablet 1 TABLET PO (07:39)
--- NOTE | 2021-03-12 09:18 | PCM.PN.OB ---
Subjective Subjective Patient without complaints. Breast-feeding going well. Ready to go home today. Objective Data Objective Data Vital Signs: Vital Signs Temp Pulse Resp BP Pulse Ox 97.0 F L 62 16 112/80 98 03/12/21 07:30 03/12/21 07:30 03/12/21 07:30 03/12/21 07:30 03/11/21 07:52 Oxygen Delivery Method Room Air Weight: 217 lb 6.012 oz Body Mass Index (BMI) 35.1 Intake & Output: Intake and Output for Last 24 Hours 03/10/21 03/11/21 03/12/21 23:59 23:59 23:59 Intake Total 1005.57 / 1005.57 Balance 1005.57 / 1005.57 Lab / Micro Data Result Diagrams: 03/11/21 05:05 03/11/21 05:05 Assessment & Plan (1) (spontaneous vaginal delivery): PLAN: Doing well day #2 status post routine spontaneous vaginal delivery. Blood pressures have returned to normal. Will discharge to home with routine instructions.
--- NOTE | 2021-03-12 09:20 | PCM.DC ---
Discharge Instructions Diet Discharge Diet: No restrictions Activity Discharge Activity: May Shower and May Take a Tub Bath May resume sexual activity in: 4-6 weeks Additional Activity Instructions:: Nothing in the vagina for 4 weeks. You may return to work/school in 6 weeks. Dressing / Incision Call your doctor if you observe: Inability to urinate, Inability to have a bowel movement and Using more than one pad per hour Follow Up Care Please Follow Up With: Laure John DO When: Call [phone] to make an appointment with your doctor in 6 weeks. Test Results: Test results from this visit will be discussed in further detail at your follow-up appointment, if applicable. Discharge Plan Admission Admit Date/Time: 03/10/21 07:15 Primary Reason for Your Visit: Vaginal Delivery Attending Provider: Martina Cortes Primary Care Provider: Rob Alvarez Discharge Orders/Prescriptions Prescriptions: Continued dggioppp-[id number] 1 mg Tablet 1 tab PO DAILY RF: 0 aspirin 81 mg Tablet,Chewable 81 mg PO DAILY RF: 0 Basaglar KwikPen U-100 Insulin 100 unit/mL (3 mL) Insulin Pen 15 unit SUBCUT QHS RF: 0 Arnuity Ellipta 200 mcg/actuation Blister With Device 1 inh INHALATION DAILY RF: 0 Referrals / Follow Up: Rob Alvarez MD [Primary Care Provider] - Disposition Disposition (needs filled in before D/C Order can be placed): Home, self care
[2021-03-12 11:02] VITALS: BP 124/74; PULSE 78
--- NOTE | 2021-03-12 12:08 | NURSING ---
1155 pt called out and said her headache was gone and she wanted to leave. Notified that office has called back but currently speaking with another nurse, will update [facility] on her headache. Pt states she is leaving now. And that she will call office if her headache returns. RN had previously gone over pre-e s/s to monitor for a report. 1200 pt dcd off unit, nursery nurse took her out 1206 spoke with [facility]. see communication intervention
== END 2021-03-12 12:00 | disposition home or self-care (01) | DRG 807 ==
PROVIDERS: Student in an Organized Health Care Education/Training Program; Admitting Provider Obstetrics & Gynecology; PCP Family Medicine; Referring Provider Obstetrics & Gynecology; Visit Provider Obstetrics & Gynecology
DX: O24.424 Gestational diabetes mellitus in childbirth, insulin controlled (principal); Z37.0 Single live birth; O99.52 Diseases of the respiratory system complicating childbirth; J45.909 Unspecified asthma, uncomplicated; O70.0 First degree perineal laceration during delivery; Z3A.39 39 weeks gestation of pregnancy; Z79.4 Long term (current) use of insulin; Z79.82 Long term (current) use of aspirin; Z79.51 Long term (current) use of inhaled steroids
CPT/HCPCS: 59025; 59050; 80053; 82962; 84550; 85025; 85027; 86850; 86900; 86901; 94640; 99218; J7120; G0378

== ENCOUNTER 2021-03-14 23:03 | Inpatient (IN) | payer OTHER, SELFPAY ==
[2021-03-10 07:42] VITALS: BMI 35.1
[2021-03-14] VITALS (21 sets, daily range): BP systolic 139–172; BP diastolic 66–89; PULSE 60–77; RESP 16–18; TEMP 36.2–36.6; O2SAT 97–100; BMI 33.0
[2021-03-14] MEDS: hydrALAZINE 20 MG/ML Vial 10 MG IV (23:07)
[2021-03-14 23:14] LABS: Protein:Creat Ratio 210 mg/g CRE (0-200)
[2021-03-14] MEDS: Magnesium Sulfate 4gm/100mL 2 GM/50 ML IV.SOLN. IV (23:15)
[2021-03-14 23:24] LABS: AST(SGOT) 47 U/L (15-37); Alanine Aminotransfer ALT/SGPT 65 U/L (13-56); Creatinine, Serum 0.64 mg/dL (0.55-1.02); EST Glomerular Filtration Rate 108 mL/min (>60); Est Glom Filt Rate - Afr Amer 131 mL/min (>60); Estimated Creatinine Clearance 109.39 ml/min; Uric Acid 5.6 mg/dL (2.6-6.0)
[2021-03-14] MEDS: Metoclopramide 10 MG/2 ML Vial 5 MG IV (23:24)
[2021-03-14 23:25] LABS: Hematocrit 29.2 % (37-47); Mean Corp Hgb Conc 34.2 g/dL (32-36); Mean Corpuscular Volume 87.7 fL (81-99); Mean Platelet Vol. 9.5 fl (6.2-12.0); Platelet Count 156 K/mm3 (150-450); RBC Distribution Width CV 13.8 % (11.6-14.6); RBC Distribution Width SD 43.3 fl (35.1-43.9); Red Blood Count 3.33 M/mm3 (4.2-5.4); White Blood Count 6.6 K/mm3 (4.4-11.0)
[2021-03-14 23:34] LABS: ALB/GLOB Ratio 0.6 RATIO (0.9-2.4); AST(SGOT) 48 U/L (15-37); Alanine Aminotransfer ALT/SGPT 65 U/L (13-56); Albumin, Serum 2.5 g/dL (3.2-5.0); Alkaline Phosphatase 128 U/L (45-117); Anion Gap 7 (5-15); BUN 17 mg/dL (7-18); BUN/Creat Ratio 27.1 RATIO (10-20); Calcium,Total 8.6 mg/dL (8.5-10.1); Chloride 108 mmol/L (98-107); Creatinine, Serum 0.63 mg/dL (0.55-1.02); EST Glomerular Filtration Rate 111 mL/min (>60); Est Glom Filt Rate - Afr Amer 135 mL/min (>60); Estimated Creatinine Clearance 111.12 ml/min; Globulin 3.9 g/dL (2.2-4.2); Glucose 112 mg/dL (74-106); LDH 261 U/L (84-246); Protein, Total 6.4 g/dL (6.4-8.2); Sodium Level 140 mmol/L (136-145)
[2021-03-14] MEDS: Magnesium Sulfate 20 GM/500 ML BAG IV (23:50)
[2021-03-14] MEDS: Lactated Ringers 1,000 ML 50 ML IV (23:50)
--- NOTE | 2021-03-14 23:50 | HP.PCM_ITS ---
HPI - General General Date of Admission: 03/14/21 HPI Narrative SHALOM TYLER, is a 40 F 17 para 9 s/p uncomplicated full term on 03/10/21 who presents with c/o 3 days headache and elevated blood pressures. Her course was marked by mildly elevated blood pressures and preeclamptic labs were normal. She was discharged to home on day #2. She reports headache since that time with mild improvement with Tylenol, however, no resolution and returns. She has a history of preeclampsia twice including following her last delivery. COUNT INCLUDES [facility] Medical History (Updated 03/15/21 @ 00:04 by Nargis Torre) Anxiety Asthma Chronic neck and back pain Headache History of endometritis history of parametritis History of pre-eclampsia Personal history of gestational diabetes Pre-eclampsia Shoulder pain Superficial varicosities (spontaneous vaginal delivery) Home Medications Arnuity Ellipta 1 inh INHALATION DAILY 03/10/21 [History Last Taken 03/14/21 09:00] pufywajr-epu-[id number]-FA 1 tab PO DAILY 03/10/21 [History Last Taken 03/13/21 09:00] Allergy/AdvReac Type Severity Reaction Status Date / Time codeine AdvReac Other Verified 03/10/21 07:47 Family History Grandmother Breast cancer Other Diabetes Surgical History History of D&C Social History (Updated 03/15/21 @ 00:[address] Martina Hernandez MD) household members: spouse, family and children number of children: 9 current occupation: Homemaker Smoking Status: Never smoker alcohol intake: never ROS Eyes Eyes: Reports blurry vision Respiratory/Chest Respiratory/Chest: Reports chest tightness; Denies cough, dyspnea, shortness of breath at rest or wheezing Gastrointestinal Gastrointestinal: Denies abdominal pain, nausea or vomiting Genitourinary Genitourinary: Reports other Details: Denies heavy lochia Neurologic Neurologic: Reports headache(s) Vital Signs Vital Signs Vital Signs: 03/14/21 22:21 03/14/21 22:22 03/14/21 22:38 Temperature 97.3 F L Temperature Source Temporal Pulse Rate 60 60 Respiratory Rate Respiratory Effort Respiratory Depth Respiratory Pattern Blood Pressure 168/80 H 168/83 H Blood Pressure Mean BP Systolic 168 168 BP Diastolic 80 83 Blood Pressure Source Blood Pressure Position Blood Pressure Location Pulse Ox 98 03/14/21 22:53 03/14/21 23:07 03/14/21 23:08 Temperature Temperature Source Pulse Rate 60 60 68 Respiratory Rate Respiratory Effort Respiratory Depth Respiratory Pattern Blood Pressure 172/89 H 172/89 H 170/86 H Blood Pressure Mean BP Systolic 172 170 BP Diastolic 89 86 Blood Pressure Source Blood Pressure Position Blood Pressure Location Pulse Ox 100 03/14/21 23:15 03/14/21 23:19 03/14/21 23:27 Temperature 97.2 F L Temperature Source Oral Pulse Rate 60 64 69 Respiratory Rate 16 Respiratory Effort Normal Non-Labored Respiratory Depth Normal Respiratory Pattern Normal Blood Pressure 170/86 H 158/82 H Blood Pressure Mean 114 BP Systolic 158 BP Diastolic 82 Blood Pressure Source Monitor Blood Pressure Position Semi-Fowlers Blood Pressure Location Left Arm Pulse Ox 100 99 03/14/21 23:28 03/14/21 23:29 03/14/21 23:32 Temperature 97.9 F Temperature Source Temporal Pulse Rate 72 68 73 Respiratory Rate 16 Respiratory Effort Respiratory Depth Respiratory Pattern Blood Pressure 158/82 H 158/82 H Blood Pressure Mean 107 BP Systolic 158 BP Diastolic 82 Blood Pressure Source Monitor Blood Pressure Position Semi-Fowlers Blood Pressure Location Right Arm Pulse Ox 99 98 03/14/21 23:37 03/14/21 23:39 03/14/21 23:42 Temperature Temperature Source Pulse Rate 74 71 75 Respiratory Rate Respiratory Effort Respiratory Depth Respiratory Pattern Blood Pressure 139/66 H Blood Pressure Mean BP Systolic 139 BP Diastolic 66 Blood Pressure Source Blood Pressure Position Blood Pressure Location Pulse Ox 98 98 03/14/21 23:47 03/14/21 23:49 Temperature Temperature Source Pulse Rate 74 73 Respiratory Rate Respiratory Effort Respiratory Depth Respiratory Pattern Blood Pressure 141/69 H Blood Pressure Mean BP Systolic 141 BP Diastolic 69 Blood Pressure Source Blood Pressure Position Blood Pressure Location Pulse Ox 97 Physical Exam Const alert, oriented x3 and no apparent distress HEENT normocephalic Resp normal respiratory effort, normal air movement and clear to auscultation bilaterally Auscultation: Negative for rales, rhonchi or wheezes Cardio regular rate, regular rhythm, S1 normal heart sound, S2 normal heart sound and no murmurs GI soft to palpation, non-tender, non-distended and no masses Extremity Extremity Narrative: bilateral +1 pedal edema Skin no rashes or lesions noted Neuro moves all extremities and deep tendon reflexes 2+ bilaterally Motor Exam: clonus absent Lab / Micro Data Result Diagrams: 03/14/21 22:55 03/14/21 22:55 Labs: Laboratory Results - last 24 hr 03/14/21 03/14/21 03/14/21 22:50 22:55 22:55 WBC 6.6 RBC 3.33 L Hgb 10.0 L Hct 29.2 L MCV 87.7 MCH 30.0 MCHC 34.2 RDW Std Deviation 43.[address] 13.8 Plt Count 156 MPV 9.5 Sodium Potassium Chloride Carbon Dioxide Anion Gap BUN Creatinine 0.64 Estim Creat Clear Calc 109.39 Est GFR (MDRD) Af Amer 131 Est GFR (MDRD) Non-Af 108 BUN/Creatinine Ratio Glucose Uric Acid 5.6 Calcium Total Bilirubin AST 47 H ALT 65 H Alkaline Phosphatase Lactate Dehydrogenase Total Protein Albumin Globulin Albumin/Globulin Ratio U Random Total Protein 8.0 Urine Creatinine 38.10 Protein/Creatinin Ratio 210 H 03/14/21 22:55 WBC RBC Hgb Hct MCV MCH MCHC RDW Std Deviation RDW Coeff of Ct Plt Count MPV Sodium 140 Potassium 4.0 Chloride 108 H Carbon Dioxide 25.0 Anion Gap 7 BUN 17 Creatinine 0.63 Estim Creat Clear Calc 111.12 Est GFR (MDRD) Af Amer 135 Est GFR (MDRD) Non-Af 111 BUN/Creatinine Ratio 27.1 H Glucose 112 H Uric Acid Calcium 8.6 Total Bilirubin 0.20 AST 48 H ALT 65 H Alkaline Phosphatase 128 H Lactate Dehydrogenase 261 H Total Protein 6.4 Albumin 2.5 L Globulin 3.9 Albumin/Globulin Ratio 0.6 L U Random Total Protein Urine Creatinine Protein/Creatinin Ratio Assessment & Plan Assessment/Plan (1) Severe pre-eclampsia affecting puerperium: PLAN: IV Magnesium BP management Liver enzymes increased from recent admission, LDH increased Serial labs q8 hours - r/o HELLP
[2021-03-15] VITALS (85 sets, daily range): BP systolic 123–173; BP diastolic 64–93; PULSE 62–129; RESP 14–20; TEMP 36.3–37.3; O2SAT 84–99
[2021-03-15] MEDS: NIFEdipine 60 MG Tablet PO (00:29)
[2021-03-15] MEDS: Acetaminophen/Butalbital/Caffe 1 Tablet 2 TABLET PO (05:04)
[2021-03-15 07:03] LABS: Mean Corp Hgb Conc 33.3 g/dL (32-36); Mean Corpuscular Hgb 29.3 pg (27.0-32.0); Mean Corpuscular Volume 87.8 fL (81-99); Mean Platelet Vol. 8.8 fl (6.2-12.0); Platelet Count 175 K/mm3 (150-450); RBC Distribution Width CV 13.6 % (11.6-14.6); RBC Distribution Width SD 43.8 fl (35.1-43.9); White Blood Count 7.2 K/mm3 (4.4-11.0)
[2021-03-15 07:18] LABS: Partial Thromboplast Time 23.1 Seconds (24.1-36.2); Prothrombin Time (Protime)PT. 12.6 SECONDS (11.7-14.9)
[2021-03-15 07:20] LABS: ALB/GLOB Ratio 0.7 RATIO (0.9-2.4); AST(SGOT) 54 U/L (15-37); Alanine Aminotransfer ALT/SGPT 78 U/L (13-56); Alkaline Phosphatase 153 U/L (45-117); Anion Gap 8 (5-15); BUN 11 mg/dL (7-18); BUN/Creat Ratio 19.5 RATIO (10-20); Calcium,Total 8.1 mg/dL (8.5-10.1); Chloride 106 mmol/L (98-107); Creatinine, Serum 0.56 mg/dL (0.55-1.02); EST Glomerular Filtration Rate 126 mL/min (>60); Est Glom Filt Rate - Afr Amer 152 mL/min (>60); Estimated Creatinine Clearance 125.01 ml/min; Globulin 4.5 g/dL (2.2-4.2); Glucose 108 mg/dL (74-106); LDH 316 U/L (84-246); Potassium 3.6 mmol/L (3.5-5.1); Protein, Total 7.5 g/dL (6.4-8.2); Sodium Level 140 mmol/L (136-145)
--- NOTE | 2021-03-15 07:31 | PCM.PROGNOTE ---
Subjective Subjective Reports severe headache 8/10, frontal and occipital extending into neck and left arm. Minimal relief with Fioricet. Notes that the IV Reglan resolved headache last night. No chest pain or shortness of breath. Denies abdominal pain. No nausea or vomiting. Objective Data Objective Data Vital Signs: Vital Signs Temp Pulse Resp BP Pulse Ox 98.3 F 93 16 132/73 H 97 03/15/21 07:14 03/15/21 07:14 03/15/21 07:14 03/15/21 07:14 03/15/21 05:07 Weight: 92.986 kg Body Mass Index (BMI) 33.0 Intake & Output: Intake and Output for Last 24 Hours 03/13/21 03/14/21 03/15/21 23:59 23:59 23:59 Intake Total 50 / 58.33 919.99 / 919.99 Output Total 200 / 200 5100 / 5100 Balance -150 / -141.67 -4180.01 / -4180.01 Lab / Micro Data Result Diagrams: 03/15/21 06:55 03/15/21 06:55 Labs: Laboratory Results - last 24 hr 03/14/21 03/14/21 03/14/21 22:50 22:55 22:55 WBC 6.6 RBC 3.33 L Hgb 10.0 L Hct 29.2 L MCV 87.7 MCH 30.0 MCHC 34.2 RDW Std Deviation 43.[address] 13.8 Plt Count 156 MPV 9.5 PT INR APTT Sodium Potassium Chloride Carbon Dioxide Anion Gap BUN Creatinine 0.64 Estim Creat Clear Calc 109.39 Est GFR (MDRD) Af Amer 131 Est GFR (MDRD) Non-Af 108 BUN/Creatinine Ratio Glucose Uric Acid 5.6 Calcium Total Bilirubin AST 47 H ALT 65 H Alkaline Phosphatase Lactate Dehydrogenase Total Protein Albumin Globulin Albumin/Globulin Ratio U Random Total Protein 8.0 Urine Creatinine 38.10 Protein/Creatinin Ratio 210 H 03/14/21 03/15/21 03/15/21 22:55 06:55 06:55 WBC 7.2 RBC 4.10 L Hgb 12.0 Hct 36.0 L MCV 87.8 MCH 29.3 MCHC 33.3 RDW Std Deviation 43.[address] 13.6 Plt Count 175 MPV 8.8 PT 12.6 INR 1.0 APTT 23.1 L Sodium 140 Potassium 4.0 Chloride 108 H Carbon Dioxide 25.0 Anion Gap 7 BUN 17 Creatinine 0.63 Estim Creat Clear Calc 111.12 Est GFR (MDRD) Af Amer 135 Est GFR (MDRD) Non-Af 111 BUN/Creatinine Ratio 27.1 H Glucose 112 H Uric Acid Calcium 8.6 Total Bilirubin 0.20 AST 48 H ALT 65 H Alkaline Phosphatase 128 H Lactate Dehydrogenase 261 H Total Protein 6.4 Albumin 2.5 L Globulin 3.9 Albumin/Globulin Ratio 0.6 L U Random Total Protein Urine Creatinine Protein/Creatinin Ratio 03/15/21 06:55 WBC RBC Hgb Hct MCV MCH MCHC RDW Std Deviation RDW Coeff of Ct Plt Count MPV PT INR APTT Sodium 140 Potassium 3.6 Chloride 106 Carbon Dioxide 26.0 Anion Gap 8 BUN 11 Creatinine 0.56 Estim Creat Clear Calc 125.01 Est GFR (MDRD) Af Amer 152 Est GFR (MDRD) Non-Af 126 BUN/Creatinine Ratio 19.5 Glucose 108 H Uric Acid Calcium 8.1 L Total Bilirubin 0.30 AST 54 H ALT 78 H Alkaline Phosphatase 153 H Lactate Dehydrogenase 316 H Total Protein 7.5 Albumin 3.0 L Globulin 4.5 H Albumin/Globulin Ratio 0.7 L U Random Total Protein Urine Creatinine Protein/Creatinin Ratio Physical Exam Const alert, oriented x3 and no apparent distress Resp normal respiratory effort and normal air movement Cardio regular rate, regular rhythm, S1 normal heart sound and S2 normal heart sound Neuro oriented x3 and deep tendon reflexes 2+ bilaterally Neuro Narrative: no clonus Assessment & Plan Assessment/Plan (1) Severe pre-eclampsia affecting puerperium: PLAN: LFTs mildly increased, however suspect patient is hemoconcentrated with significant diuresis. BPs well controlled, will continue Nifedipine XL 60mg daily IV Reglan for headache, consider head imaging if headache persists Continue IV magnesium Repeat labs this afternoon
[2021-03-15] MEDS: Metoclopramide 10 MG/2 ML Vial 5 MG IV (08:03)
[2021-03-15] MEDS: FLUTICASONE FUROATE 200 MCG BLST.W.DEV INHALATION (08:41)
[2021-03-15] MEDS: Magnesium Sulfate 20 GM/500 ML BAG IV ×2 (09:03→18:36)
[2021-03-15] MEDS: Ketorolac 15 MG/ML Vial IV (12:40)
[2021-03-15] MEDS: Fluticasone 0.05% 1 SPRAY NASAL.SRY 2 SPRAY NASAL (12:41)
[2021-03-15] MEDS: Loratadine 10 MG Tablet PO (12:42)
[2021-03-15] MEDS: Prenatal Vits Tablet 1 TABLET PO (13:48)
[2021-03-15 14:50] LABS: Hematocrit 37.7 % (37-47); Hemoglobin 12.8 g/dL (12.0-15.0); Mean Corpuscular Hgb 29.9 pg (27.0-32.0); Mean Corpuscular Volume 88.1 fL (81-99); Mean Platelet Vol. 8.8 fl (6.2-12.0); Platelet Count 209 K/mm3 (150-450); RBC Distribution Width CV 13.7 % (11.6-14.6); Red Blood Count 4.28 M/mm3 (4.2-5.4); White Blood Count 10.4 K/mm3 (4.4-11.0)
[2021-03-15 15:05] LABS: Prothrombin Time (Protime)PT. 12.7 SECONDS (11.7-14.9)
--- NOTE | 2021-03-15 15:05 | NURSING ---
not saving 1140 and 1330 mag check. PIndermuhle aware. 1140--temp 98.4, pulse 93, 97% RA, BP 137/76, resp 18. fluid in 550/ out 900. CTA, Reflexes B/L upper and lower +2, no clonus. 1330 temp 98.2, pulse 93, 97%RA, BP 135/73, resp 18 intake 400 out 650. CTA B/L, reflexes upper and lower +2 and no clonus.
[2021-03-15 15:06] LABS: Partial Thromboplast Time 25.7 Seconds (24.1-36.2)
--- NOTE | 2021-03-15 15:43 | NURSING ---
Talked with Yuliet jeffrey at Dr Connolly office and asked her to have doctor review pt labs. Would also like for her to come and assess pt prior to leaving office.
[2021-03-15 16:06] LABS: LDH 346 U/L (84-246)
[2021-03-15] MEDS: Acetaminophen 500 MG Tablet 1000 MG PO (16:31)
[2021-03-15 16:32] LABS: ALB/GLOB Ratio 0.6 RATIO (0.9-2.4); AST(SGOT) 59 U/L (15-37); Alanine Aminotransfer ALT/SGPT 86 U/L (13-56); Albumin, Serum 3.1 g/dL (3.2-5.0); Alkaline Phosphatase 162 U/L (45-117); Anion Gap 7 (5-15); BUN 13 mg/dL (7-18); BUN/Creat Ratio 19.3 RATIO (10-20); Chloride 104 mmol/L (98-107); Creatinine, Serum 0.67 mg/dL (0.55-1.02); EST Glomerular Filtration Rate 103 mL/min (>60); Est Glom Filt Rate - Afr Amer 124 mL/min (>60); Estimated Creatinine Clearance 104.49 ml/min; Glucose 118 mg/dL (74-106); Potassium 3.6 mmol/L (3.5-5.1); Protein, Total 8.1 g/dL (6.4-8.2); Sodium Level 137 mmol/L (136-145)
--- NOTE | 2021-03-15 17:56 | NURSING ---
1730 vitals 100.0 temporal, pulse 106, rr 18, BP 173/93 98% RA. in 480 out 300. lungs are clear and reflexes within normal limits. no clonus. Dr Connolly has been notified due to pt calling nurse in for feeling her heart race. originally 106 then increased to 112-126 RA 98%, pt aware she will be over to see her.
--- NOTE | 2021-03-15 18:28 | CT_ITS ---
STUDY: CT BRAIN WITHOUT CONTRAST REASON FOR EXAM: Female, 40 years old. Persistent headache, preeclampsia RADIATION DOSAGE (If Supplied By Facility): CTDIvol = ( 44.99 ) mGy, DLP = ( 796.11 ) mGycm TECHNIQUE: Transaxial CT imaging of the brain was performed without administration of intravenous contrast material. Individualized dose optimization techniques were used for this CT. COMPARISON: No relevant priors. FINDINGS: Normal soft tissue structures. Normal calvarium. Normal size ventricles and extra-axial spaces for the patient''s age. Normal white matter tracts of the cerebral hemispheres. Normal basal ganglia and thalami. Normal brainstem. Normal cerebellum. There is no intracranial hemorrhage. There are no findings of an acute ischemic infarction. Opacification of the right maxillary sinus, diffuse mucosal thickening in the right ethmoid sinus, and sphenoid sinuses CT/Brain/Head without Contrast IMPRESSION: No acute intracranial abnormalities Paranasal sinusitis with opacification of the right maxillary sinus Electronically Signed: Arturo Butler MD at 20:39 EDT , Service support ,
--- NOTE | 2021-03-15 18:29 | CT_ITS ---
STUDY: CTA CHEST REASON FOR EXAM: Female, 40 years old. tachycardia RADIATION DOSAGE (If Supplied By Facility): CTDIvol = ( 12.08 ) mGy, DLP = ( 456.21 ) mGycm TECHNIQUE: The examination was performed with the intravenous administration of . Post-processing of the angiographic images was performed, with multiplanar reformation and 3D reconstruction. Individualized dose optimization techniques were used for this CT. COMPARISON: None. FINDINGS: Normal enhancement of the main pulmonary artery and right and left pulmonary arteries. Normal enhancement of the bilateral peripheral pulmonary arteries. There is no demonstrated pulmonary embolism. Normal thoracic aorta and visualized great vessels. There is no demonstrated aortic dissection. Normal heart and pericardium. Normal mediastinum. Normal hilar regions. Normal visualized trachea and bronchi. The lungs are well expanded. Interstitial edema noted in both lung ortega consistent with patient''s recent state Normal pleura. Normal chest wall structures. Normal osseous structures. Normal visualized upper abdomen. CT/CTA Chest W/WO Contrast IMPRESSION: No demonstrated PE, thoracic aortic aneurysm or dissection Interstitial edema consistent with patient''s history of recent No superimposed infiltrate or effusion Electronically Signed: Arturo Butler MD at 20:50 EDT , Service support ,
--- NOTE | 2021-03-15 18:30 | PN_ITS ---
Progress Note Patient seen and evaluated at bedside. Ill-appearing. Seated breast-feeding . Reports headache that is behind her eyes and on the left side of her head and left neck. Reports photophobia and phonophobia. No change with position. Does state that with quick head movements her headache worsens. Denies visual changes. Denies any neck stiffness. Reports some congestion and cough with clear phlegm since delivery. Did not have fever at home. Denies any foul-smelling vaginal discharge, dysuria, abdominal pain or discomfort. Lower extremity edema has improved since delivery. Physical Exam Const alert, oriented x3 and no apparent distress General Appearance: cooperative Orientation / Consciousness: awake, oriented to person, oriented to place and oriented to time HEENT normocephalic and head/scalp atraumatic HEENT Narrative: No tenderness with neck palpation, no stiffness with neck movement. Head and Scalp: normal to inspection Eyes PERRL General Eye: normal appearance of both eyes Neck full ROM and No nuchal rigidity Chest inspection of chest normal Resp normal respiratory effort, normal air movement and clear to auscultation bilaterally Effort and Inspection: able to speak in complete sentences Cardio regular rhythm and no murmurs Rate: tachycardic Heart Sounds: S1 normal and S2 normal GI normal to inspection, nondistended, normoactive bowel sounds GI Narrative: Uterus below umbilicus, no fundal tenderness Extremity normal to inspection, no clubbing, cyanosis or edema and no calf tenderness Neuro CN's II-XII intact bilaterally, moves all extremities, no focal motor deficits, no sensory deficits noted and deep tendon reflexes 2+ bilaterally Assessment & Plan Assessment/Plan (1) Severe pre-eclampsia affecting puerperium: PLAN: 40-year-old readmitted for severe preeclampsia. -Persistent headache throughout the day. Did have mild improvement with To radol. Based on persistent headache will get CT head. Continue motrin/tylenol as needed for pain. -Blood pressure had been well controlled overnight and throughout the day until recently, patient had one-time severe blood pressure this evening that was not persistent. Will increase Procardia to 90 mg daily to be given this evening. Continue mag sulfate. LFTs have been stableBased on preeclampsia diagnosis we will start Lovenox 40 mg subcu daily for VTE prophylaxis. -Patient did become tachycardic this evening as well. This in the setting of preeclampsia in the state in addition to mild fever will get CT angio of the chest. -In regards to mild fever: Patient did have Tylenol about an hour prior to temp of 100 ?F, questionable whether this would have been higher without Tylenol. No evidence of endometritis (no fundal tenderness, no foul-smelling lochia). Patient does have some congestion and cough, however lungs were clear to auscultation. UA/C&S to be sent. We will wait at this time to start antibiotics until scans are completed. If negative will consider treating upper respiratory infection at that time. -Repeat labs in AM. -Discussed plan with RN and patient/partner at bedside. All questions answered. (2) Headache: (3) Tachycardia:
[2021-03-15] MEDS: Enoxaparin 40 MG/0.4 ML Syringe SC (18:38)
[2021-03-15] MEDS: Ibuprofen 400 MG Tablet 800 MG PO (18:54)
[2021-03-15] MEDS: 0.9% Saline Lock 10 ML Syringe IV ×3 (19:08→21:58)
[2021-03-15] MEDS: NIFEdipine 90 MG Tablet PO (19:19)
[2021-03-15] MEDS: Topiramate 25 MG Tablet PO (21:48)
[2021-03-15] MEDS: dexAMETHasone 4 MG/ML Vial IV (21:49)
[2021-03-15] MEDS: Amox/Clavulanate 875 MG Tablet PO (21:49)
[2021-03-16] VITALS (29 sets, daily range): BP systolic 113–129; BP diastolic 57–76; PULSE 92–127; RESP 14–18; TEMP 36.7–37.2; O2SAT 92–98
[2021-03-16] MEDS: Acetaminophen 500 MG Tablet 1000 MG PO ×2 (00:16→10:47)
[2021-03-16] MEDS: FLUCONAZOLE 150 MG TABLET PO (00:17)
[2021-03-16] MEDS: Ibuprofen 400 MG Tablet 800 MG PO ×3 (01:44→17:35)
[2021-03-16 06:23] LABS: Absolute Lymphocyte Count 0.75 X10^3/uL (0.83-4.51); Absolute Neutrophil Count 7.8 X10^3/uL (2.0-7.7); Basophil# 0.02 X10^3/uL; Basophil% 0.2 % (0-1); Eosinophil# 0.01 X10^3/uL; Eosinophils% 0.1 % (0-5); Hematocrit 36.7 % (37-47); Hemoglobin 12.3 g/dL (12.0-15.0); Lymphocyte # 0.75 X10^3/ul (0.83-4.51); Lymphocyte % 8.4 % (19-41); Mean Corp Hgb Conc 33.5 g/dL (32-36); Mean Corpuscular Hgb 29.4 pg (27.0-32.0); Mean Corpuscular Volume 87.6 fL (81-99); Mean Platelet Vol. 8.6 fl (6.2-12.0); Monocyte# 0.33 X10^3/uL; Monocyte% 3.7 % (0-10); NRBC Flagged by Analyzer 0 % (0-5); Neutrophil # 7.75 X10^3/uL (2.7-7.7); Neutrophil % 86.9 % (47-70); Platelet Count 229 K/mm3 (150-450); RBC Distribution Width CV 13.5 % (11.6-14.6); Red Blood Count 4.19 M/mm3 (4.2-5.4); White Blood Count 8.9 K/mm3 (4.4-11.0)
[2021-03-16 06:55] LABS: ALB/GLOB Ratio 0.6 RATIO (0.9-2.4); AST(SGOT) 33 U/L (15-37); Alanine Aminotransfer ALT/SGPT 68 U/L (13-56); Albumin, Serum 2.9 g/dL (3.2-5.0); Alkaline Phosphatase 147 U/L (45-117); Anion Gap 7 (5-15); BUN 17 mg/dL (7-18); Calcium,Total 7.8 mg/dL (8.5-10.1); Chloride 106 mmol/L (98-107); Creatinine, Serum 0.77 mg/dL (0.55-1.02); EST Glomerular Filtration Rate 88 mL/min (>60); Est Glom Filt Rate - Afr Amer 106 mL/min (>60); Estimated Creatinine Clearance 90.92 ml/min; Globulin 4.6 g/dL (2.2-4.2); Glucose 138 mg/dL (74-106); Protein, Total 7.5 g/dL (6.4-8.2); Sodium Level 136 mmol/L (136-145)
--- NOTE | 2021-03-16 08:03 | PCM.PN.OB ---
Subjective Subjective Admit day 2. Patient feeling much improved overnight. She is up ambulating in room. Headache greatly improved as well. Denies visual changes, chest pain, shortness of breath, nausea or vomiting, right upper quadrant pain. Tolerating diet. Objective Data Objective Data Vital Signs: Vital Signs Temp Pulse Resp BP Pulse Ox 98.9 F 92 18 123/68 H 97 03/16/21 06:10 03/16/21 06:10 03/16/21 06:10 03/16/21 06:10 03/16/21 06:10 Oxygen Delivery Method Room Air Weight: 92.986 kg Body Mass Index (BMI) 33.0 Intake & Output: Intake and Output for Last 24 Hours 03/14/21 03/15/21 03/16/21 23:59 23:59 23:59 Intake Total 50 / 58.33 4729.97 / 4729.97 Output Total 200 / 200 8650 / 8650 Balance -150 / -141.67 -3920.03 / -3920.03 Lab / Micro Data Result Diagrams: 03/16/21 06:10 03/16/21 06:10 Labs: Laboratory Results - last 24 hr 03/15/21 03/15/21 03/15/21 14:35 14:35 14:35 WBC 10.4 RBC 4.28 Hgb 12.8 Hct 37.7 MCV 88.1 MCH 29.9 MCHC 34.0 RDW Std Deviation 44.[address] 13.7 Plt Count 209 MPV 8.8 Immature Gran % (Auto) Neut % (Auto) Lymph % (Auto) [place] % (Auto) Eos % (Auto) Baso % (Auto) Absolute Neuts (auto) Absolute Lymphs (auto) Nucleated RBC % PT 12.7 INR 1.0 APTT 25.7 Sodium Potassium Chloride Carbon Dioxide Anion Gap BUN Creatinine Estim Creat Clear Calc Est GFR (MDRD) Af Amer Est GFR (MDRD) Non-Af BUN/Creatinine Ratio Glucose Calcium Total Bilirubin AST ALT Alkaline Phosphatase Lactate Dehydrogenase 346 H Total Protein Albumin Globulin Albumin/Globulin Ratio COVID-19 (EVIN) 03/15/21 03/15/21 03/16/21 14:35 16:03 06:10 WBC RBC Hgb Hct MCV MCH MCHC RDW Std Deviation RDW Coeff of Ct Plt Count MPV Immature Gran % (Auto) Neut % (Auto) Lymph % (Auto) [place] % (Auto) Eos % (Auto) Baso % (Auto) Absolute Neuts (auto) Absolute Lymphs (auto) Nucleated RBC % PT INR APTT Sodium 137 136 Potassium 3.6 4.0 Chloride 104 106 Carbon Dioxide 26.0 23.0 Anion Gap 7 7 BUN 13 17 Creatinine 0.67 0.77 Estim Creat Clear Calc 104.49 90.92 Est GFR (MDRD) Af Amer 124 106 Est GFR (MDRD) Non-Af 103 88 BUN/Creatinine Ratio 19.3 22.0 H Glucose 118 H 138 H Calcium 8.0 L 7.8 L Total Bilirubin 0.30 0.60 AST 59 H 33 ALT 86 H 68 H Alkaline Phosphatase 162 H 147 H Lactate Dehydrogenase Total Protein 8.1 7.5 Albumin 3.1 L 2.9 L Globulin 5.0 H 4.6 H Albumin/Globulin Ratio 0.6 L 0.6 L COVID-19 (EVIN) Not Detected 03/16/21 06:10 WBC 8.9 RBC 4.19 L Hgb 12.3 Hct 36.7 L MCV 87.6 MCH 29.4 MCHC 33.5 RDW Std Deviation 43.[address] 13.5 Plt Count 229 MPV 8.6 Immature Gran % (Auto) 0.700 Neut % (Auto) 86.9 H Lymph % (Auto) 8.4 L [place] % (Auto) 3.7 Eos % (Auto) 0.1 Baso % (Auto) 0.2 Absolute Neuts (auto) 7.8 H Absolute Lymphs (auto) 0.75 L Nucleated RBC % 0 PT INR APTT Sodium Potassium Chloride Carbon Dioxide Anion Gap BUN Creatinine Estim Creat Clear Calc Est GFR (MDRD) Af Amer Est GFR (MDRD) Non-Af BUN/Creatinine Ratio Glucose Calcium Total Bilirubin AST ALT Alkaline Phosphatase Lactate Dehydrogenase Total Protein Albumin Globulin Albumin/Globulin Ratio COVID-19 (VEIN) Micro: Microbiology 03/15/21 16:03 Mucosa - Nasopharyngeal Influenza Types A,B Direct FA (DAVE) - Final Radiography Diagnostic Testing: Radiology Impression Brain CT 03/15/21 18:28 IMPRESSION: No acute intracranial abnormalities Paranasal sinusitis with opacification of the right maxillary sinus Electronically Signed: Arturo Butler MD at 20:39 EDT , Service support , Chest CTA 03/15/21 18:29 IMPRESSION: No demonstrated PE, thoracic aortic aneurysm or dissection Interstitial edema consistent with patient''s history of recent No superimposed infiltrate or effusion Electronically Signed: Arturo Butler MD at 20:50 EDT , Service support , ROS Constitutional Constitutional: Reports systems reviewed and no addt'l complaints, except as documented Eyes Eyes: Reports systems reviewed and no addt'l complaints, except as documented ENT HEENT: Reports systems reviewed and no addt'l complaints, except as documented Cardiovascular Cardiovascular: Reports systems reviewed and no addt'l complaints, except as documented Respiratory/Chest Respiratory/Chest: Reports systems reviewed and no addt'l complaints, except as documented Genitourinary Genitourinary: Reports systems reviewed and no addt'l complaints, except as documented Musculoskeletal Musculoskeletal: Reports systems reviewed and no addt'l complaints, except as documented Neurologic Neurologic: Reports systems reviewed and no addt'l complaints, except as documented Physical Exam Const alert, oriented x3 and no apparent distress HEENT normocephalic Head and Scalp: atraumatic Eyes PERRL Neck full ROM and supple Resp normal respiratory effort and clear to auscultation bilaterally Cardio regular rate and regular rhythm GI normal to inspection, nondistended, normoactive bowel sounds GI Narrative: fundus firm, nontender Extremity no pedal edema Skin no rashes or lesions noted Neuro moves all extremities, no focal motor deficits, no sensory deficits noted and deep tendon reflexes 2+ bilaterally Motor Exam: strength 5/5 throughout Assessment & Plan (1) Severe pre-eclampsia affecting puerperium: PLAN: Admitting to for preeclampsia with severe features in the period. -LFTs improving. Creatinine and platelets stable. -Head CT and CTA yesterday negative for related issues. -Headache greatly improved today with addition of antibiotic and Decadron. Patient received one-time dose of Topamax last night. ?Blood pressures well controlled on Procardia 90 mg daily. Will need to be continued on home-going. Patient has blood pressure cuff which she is borrowing currently and will buy one as well. Will notify office if she has issues. -Likely home tomorrow morning. (2) Headache: (3) Sinusitis: PLAN: Working diagnosis of sinusitis based on congestion, cough, paranasal sinusitis and maxillary opacification on the Head CT. Patient had been started on Augmentin overnight. She is also using Flonase. Continue antibiotic.
[2021-03-16] MEDS: dexAMETHasone 4 MG Tablet PO ×2 (10:42→18:32)
[2021-03-16] MEDS: FLUTICASONE FUROATE 200 MCG BLST.W.DEV INHALATION (10:42)
[2021-03-16] MEDS: Loratadine 10 MG Tablet PO (10:43)
[2021-03-16] MEDS: Enoxaparin 40 MG/0.4 ML Syringe SC (10:43)
[2021-03-16] MEDS: NIFEdipine 90 MG Tablet PO (10:43)
[2021-03-16] MEDS: Amox/Clavulanate 875 MG Tablet PO ×2 (10:43→21:18)
[2021-03-16] MEDS: Fluticasone 0.05% 1 SPRAY NASAL.SRY 2 SPRAY NASAL (10:44)
[2021-03-16] MEDS: Prenatal Vits Tablet 1 TABLET PO (17:35)
[2021-03-16] MEDS: 0.9% Saline Lock 10 ML Syringe IV (21:18)
[2021-03-17 00:30] VITALS: BP 122/68; PULSE 88; RESP 16; TEMP 37
[2021-03-17 01:33] VITALS: BP 116/69; PULSE 82
[2021-03-17] MEDS: Acetaminophen 500 MG Tablet 1000 MG PO (01:35)
[2021-03-17 04:03] VITALS: BP 125/69; PULSE 74; RESP 16; TEMP 36.8
[2021-03-17 04:04] VITALS: BP 125/69; PULSE 74
[2021-03-17 04:16] LABS: Absolute Lymphocyte Count 1.03 X10^3/uL (0.83-4.51); Absolute Neutrophil Count 12.1 X10^3/uL (2.0-7.7); Basophil# 0.01 X10^3/uL; Basophil% 0.1 % (0-1); Hematocrit 36.4 % (37-47); Lymphocyte # 1.03 X10^3/ul (0.83-4.51); Lymphocyte % 7.4 % (19-41); Mean Corpuscular Hgb 29.1 pg (27.0-32.0); Mean Corpuscular Volume 88.3 fL (81-99); Mean Platelet Vol. 8.4 fl (6.2-12.0); Monocyte# 0.67 X10^3/uL; Monocyte% 4.8 % (0-10); NRBC Flagged by Analyzer 0 % (0-5); Neutrophil # 12.12 X10^3/uL (2.7-7.7); Platelet Count 259 K/mm3 (150-450); RBC Distribution Width CV 13.2 % (11.6-14.6); RBC Distribution Width SD 42.8 fl (35.1-43.9); Red Blood Count 4.12 M/mm3 (4.2-5.4); White Blood Count 13.9 K/mm3 (4.4-11.0)
[2021-03-17 04:44] LABS: ALB/GLOB Ratio 0.7 RATIO (0.9-2.4); AST(SGOT) 18 U/L (15-37); Alanine Aminotransfer ALT/SGPT 53 U/L (13-56); Albumin, Serum 2.9 g/dL (3.2-5.0); Alkaline Phosphatase 132 U/L (45-117); Anion Gap 9 (5-15); BUN 21 mg/dL (7-18); Chloride 105 mmol/L (98-107); Creatinine, Serum 0.66 mg/dL (0.55-1.02); EST Glomerular Filtration Rate 106 mL/min (>60); Est Glom Filt Rate - Afr Amer 128 mL/min (>60); Estimated Creatinine Clearance 106.07 ml/min; Globulin 4.3 g/dL (2.2-4.2); Glucose 160 mg/dL (74-106); LDH 251 U/L (84-246); Potassium 4.2 mmol/L (3.5-5.1); Protein, Total 7.2 g/dL (6.4-8.2); Sodium Level 137 mmol/L (136-145)
--- NOTE | 2021-03-17 08:36 | DS.PCM_ITS ---
Providers Date of Admission: 03/14/21 Primary Care Physician: Dr. Rob Alvarez MD Reason For Visit: PREECLAMPSIA Diagnosis Discharge Diagnosis (1) Severe pre-eclampsia affecting puerperium: Status: Acute Code(s): O14.15 - Severe pre-eclampsia, complicating the puerperium (2) Headache: Status: Acute Code(s): R51.9 - Headache, unspecified (3) Sinusitis: Status: Acute Code(s): J32.9 - Chronic sinusitis, unspecified Medications at Discharge Home Medications Arnuity Ellipta 1 inh INHALATION DAILY 03/10/21 [id number] 1 tab PO DAILY 03/10/21 amoxicillin-pot clavulanate 875 mg PO BID 8 Days #16 tab 03/16/21 dexamethasone 4 mg PO BIDCM 3 Days #6 tab 03/16/21 fluticasone furoate [Arnuity Ellipta] 1 mcg INHALATION DAILY 7 Days #14 ea 03/16/21 nifedipine 90 mg PO DAILY 30 Days #30 tab 03/16/21 Hospital Course Operations None Summary of Care Provided Hospital Course: Ariadne is a 40 year old G17 para 9 admitted on day #4 s/p uncomplicated with preeclampsia with severe features including a headache, elevated liver enzymes and evidence of hemolysis. She was on IV Magnesium x 24 hours with diuresis and given antihypertensives with improvement of her blood pressure. Her headache persisted despite multiple medications. CT Head was negative for acute pathology. Headache improved with IV Dexamethasone with NSAID therapy. She was discharged to home on day 7 . Physical Exam Narrative Reports headache much improved. After steroid the Ibuprofen and Tylenol work much better. She denies vision changes, abdominal pain. Const alert, oriented x3 and no apparent distress General Appearance: cooperative and comfortable HEENT normocephalic Resp normal respiratory effort and normal air movement Auscultation: clear to auscultation bilaterally Cardio regular rate, regular rhythm, S1 normal heart sound and S2 normal heart sound GI soft to palpation, non-tender and non-distended Extremity no calf tenderness and no pedal edema ABG / Lab / Microbiology Data Result Diagrams: 03/17/21 04:10 03/17/21 04:10 Laboratory: Laboratory Results - last 24 hr 03/17/21 03/17/21 04:10 04:10 WBC 13.9 H RBC 4.12 L Hgb 12.0 Hct 36.4 L MCV 88.3 MCH 29.1 MCHC 33.0 RDW Std Deviation 42.[address] 13.2 Plt Count 259 MPV 8.4 Immature Gran % (Auto) 0.700 Neut % (Auto) 87.0 H Lymph % (Auto) 7.4 L [place] % (Auto) 4.8 Eos % (Auto) 0.0 Baso % (Auto) 0.1 Absolute Neuts (auto) 12.1 H Absolute Lymphs (auto) 1.03 Nucleated RBC % 0 Sodium 137 Potassium 4.2 Chloride 105 Carbon Dioxide 23.0 Anion Gap 9 BUN 21 H Creatinine 0.66 Estim Creat Clear Calc 106.07 Est GFR (MDRD) Af Amer 128 Est GFR (MDRD) Non-Af 106 BUN/Creatinine Ratio 32.0 H Glucose 160 H Calcium 9.0 Total Bilirubin 0.40 AST 18 ALT 53 Alkaline Phosphatase 132 H Lactate Dehydrogenase 251 H Total Protein 7.2 Albumin 2.9 L Globulin 4.3 H Albumin/Globulin Ratio 0.7 L Microbiology: Microbiology 03/15/21 16:03 Mucosa - Nasopharyngeal Influenza Types A,B Direct FA (DAVE) - Final D/C Instructions Discharge Diet: No restrictions Discharge Activity: Return to Normal Activity, May Shower and May Take a Tub Bath May resume sexual activity in: 4-6 weeks Lifting Restricted to (Lbs): 20 Call your doctor if you observe: Fever of 101 or Higher, Using more than one pad per hour, Shortness of breath, Chest pain, Calf discomfort, Uncontrolled pain and - (Persistent or severe headache; Blood pressures >=160 systolic or >=110 diastolic) Please Follow Up With: Laure John DO When: 7-10 days for blood pressure check Meaningful Use Info Meaningful Use Diagnoses (Choose all that apply): None applicable Discharge Plan Admission Admit Date/Time: 03/14/21 23:03 Primary Reason for Your Visit: Preeclampsia, Headache, Sinusitis Attending Provider: Martina Cortes Primary Care Provider: Rob Alvarez Instructions Patient Instructions: Controlling High Blood Pressure, Understanding Preeclampsia Additional Instructions / Restrictions: You may take Ibuprofen 200mg tablets- Take 4 tabs every 8 hours as needed for pain or headache. Take with food. You may also use Extra Strength Tylenol 500mg tabs - take 2 tablets every 8 hours as needed for pain or headache. Discharge Orders/Prescriptions Prescriptions: New Arnuity Ellipta 200 mcg/actuation Blister With Device 1 mcg inhalation DAILY 7 Days Qty: 14 RF: 0 nifedipine 90 mg Tablet Extended Release 90 mg PO DAILY 30 Days Qty: 30 RF: 2 dexamethasone 4 mg Tablet 4 mg PO BIDCM 3 Days Qty: 6 RF: 0 amoxicillin-pot clavulanate 875-125 mg Tablet 875 mg PO BID 8 Days Qty: 16 RF: 0 No Action [id number] 1 mg Tablet 1 tab PO DAILY RF: 0 Arnuity Ellipta 200 mcg/actuation Blister With Device 1 inh INHALATION DAILY RF: 0 Referrals / Follow Up: Rob Alvarez MD [Primary Care Provider] -
[2021-03-17] MEDS: dexAMETHasone 4 MG Tablet PO (08:38)
[2021-03-17 08:40] VITALS: BP 127/70; PULSE 81
[2021-03-17 09:30] VITALS: BP 127/70; PULSE 81; RESP 16; TEMP 36.9; O2SAT 99
[2021-03-17] MEDS: Loratadine 10 MG Tablet PO (10:07)
[2021-03-17] MEDS: NIFEdipine 90 MG Tablet PO (10:07)
[2021-03-17] MEDS: Fluticasone 0.05% 1 SPRAY NASAL.SRY 2 SPRAY NASAL (10:08)
[2021-03-17] MEDS: Amox/Clavulanate 875 MG Tablet PO (10:08)
== END 2021-03-17 10:20 | disposition home or self-care (01) | DRG 776 ==
LOC: WPOUT 23:04 → WP 23:04
PROVIDERS: Student in an Organized Health Care Education/Training Program; Admitting Provider Obstetrics & Gynecology; PCP Family Medicine; Visit Provider Obstetrics & Gynecology
DX: O14.15 Severe pre-eclampsia, complicating the puerperium (principal); J32.9 Chronic sinusitis, unspecified; J45.909 Unspecified asthma, uncomplicated; O99.53 Diseases of the respiratory system complicating the puerperium
CPT/HCPCS: 70450; 71275; 80053; 82565; 82570; 83615; 84156; 84450; 84460; 84550; 85025; 85027; 85610; 85730; 87086; 87088; 87635; 87804; J7120; Q9967; A4216; U0002

== ENCOUNTER 2021-03-27 20:35 | Outpatient (CLI) | payer OTHER, SELFPAY ==
[2021-03-14 22:07] VITALS: BMI 33.0
[2021-03-27] VITALS (9 sets, daily range): BP systolic 123–138; BP diastolic 75–83; PULSE 60–78; TEMP 37.1; O2SAT 98; BMI 31.1
[2021-03-27] MEDS: Ketorolac 30 MG/ML Syringe IV (21:30)
[2021-03-27] MEDS: 0.9% Saline Lock 10 ML Syringe IV (21:30)
[2021-03-27 21:46] LABS: Hematocrit 35.1 % (37-47); Hemoglobin 12.1 g/dL (12.0-15.0); Mean Corp Hgb Conc 34.5 g/dL (32-36); Mean Corpuscular Hgb 29.2 pg (27.0-32.0); Mean Corpuscular Volume 84.6 fL (81-99); Mean Platelet Vol. 8.6 fl (6.2-12.0); Platelet Count 206 K/mm3 (150-450); RBC Distribution Width CV 13.1 % (11.6-14.6); RBC Distribution Width SD 40.2 fl (35.1-43.9); Red Blood Count 4.15 M/mm3 (4.2-5.4); White Blood Count 7.5 K/mm3 (4.4-11.0)
[2021-03-27 22:08] LABS: ALB/GLOB Ratio 0.9 RATIO (0.9-2.4); AST(SGOT) 14 U/L (15-37); Alanine Aminotransfer ALT/SGPT 30 U/L (13-56); Albumin, Serum 3.3 g/dL (3.2-5.0); Alkaline Phosphatase 95 U/L (45-117); Anion Gap 5 (5-15); BUN 13 mg/dL (7-18); BUN/Creat Ratio 20.5 RATIO (10-20); Calcium,Total 9.1 mg/dL (8.5-10.1); Chloride 105 mmol/L (98-107); Creatinine, Serum 0.64 mg/dL (0.55-1.02); EST Glomerular Filtration Rate 110 mL/min (>60); Est Glom Filt Rate - Afr Amer 133 mL/min (>60); Estimated Creatinine Clearance 109.39 ml/min; Globulin 3.5 g/dL (2.2-4.2); Glucose 102 mg/dL (74-106); LDH 167 U/L (84-246); Protein, Total 6.8 g/dL (6.4-8.2); Sodium Level 136 mmol/L (136-145); Uric Acid 5.6 mg/dL (2.6-6.0)
[2021-03-27] MEDS: Lisinopril 2.5 MG Tablet PO (22:52)
--- NOTE | 2021-03-27 23:06 | PCM.DC ---
Discharge Instructions Diet Discharge Diet: No restrictions Activity Discharge Activity: Return to Normal Activity Dressing / Incision Call your doctor if you observe: Fever of 101 or Higher, Using more than one pad per hour, Dizziness, Chest pain, Calf discomfort, Uncontrolled pain and - (Persistent or severe headache) Follow Up Care Please Follow Up With: Laure John DO When: April 01 or April 02 - telephone visit. Call the office to schedule an appointment with Dr. John or Dr. Jami Hernandez. Test Results: Test results from this visit will be discussed in further detail at your follow-up appointment, if applicable. Discharge Plan Admission Reason For Visit: R/O POST PRE ECLAMPSIA Attending Provider: Martina Cortes Primary Care Provider: Rob Alvarez Instructions Feeding: Discharge Orders/Prescriptions Prescriptions: New lisinopril 2.5 mg tablet 2.5 mg PO DAILY Qty: 30 RF: 5 Continued [id number] 1 mg Tablet 1 tab PO DAILY RF: 0 Arnuity Ellipta 200 mcg/actuation Blister With Device 1 inh INHALATION DAILY RF: 0 Discontinued Arnuity Ellipta 200 mcg/actuation Blister With Device 1 mcg inhalation DAILY 7 Days Qty: 14 RF: 0 nifedipine 90 mg Tablet Extended Release 90 mg PO DAILY 30 Days Qty: 30 RF: 2 dexamethasone 4 mg Tablet 4 mg PO BIDCM 3 Days Qty: 6 RF: 0 amoxicillin-pot clavulanate 875-125 mg Tablet 875 mg PO BID 8 Days Qty: 16 RF: 0 Referrals / Follow Up: Rob Alvarez MD [Primary Care Provider] - Disposition Patient Disposition: Home, self care
--- NOTE | 2021-03-27 23:10 | OB.TRI.HP_ITS ---
HPI - General HPI Narrative SHALOM TYLER, is a 40 F g 17 para 9 who presents 2.5 weeks s/p uncomplicated on 03/10/21 with headache and elevated home BPs. She reports awakening from a nap with her heart racing and headache present. She was readmitted on day 3 with preeclampsia with severe features having a persistent headache. She received magnesium x [address] head that was negative. She was treated with Reglan, NSAIDs, Fiorecet and eventually steroids with improvement of the headache. She was discharged to home on Nifedipine, Augmentin, steroids. She was seen in the office 5 days ago after having completed the steroids with continued mild headache and Nifedipine was discontinued and she was switched to Azithromycin. She notes BPs were mostly 130s/80s until today when she had SBP 160s and DBP 100s and was advised to go to [facility] for evaluation by the air conditioning engineer nurse. Shalom also reports having had a dental procedure with drilling yesterday. She felt well immediately after the procedure, but began to note the headache yesterday overnight. Headache is frontal, dull, non-radiating, improved with 1g Tylenol to 4/10. No clear precipitants. Maternal Data Information DUNIA Calculator Estimated Delivery Date Method Current WG Current Estimate 03/11/21 LMP (Certain) 42w 2d [facility] Medical History (Updated 03/27/21 @ 23:[address] Martina Hernandez MD) Anxiety Asthma Chronic neck and back pain Headache History of endometritis history of parametritis History of pre-eclampsia Personal history of gestational diabetes Pre-eclampsia Severe pre-eclampsia affecting puerperium Shoulder pain Sinusitis Superficial varicosities (spontaneous vaginal delivery) Home Medications Arnuity Ellipta 1 inh INHALATION DAILY 03/10/21 [History Last Taken 03/14/21 09:00] [id number] 1 tab PO DAILY 03/10/21 [History Last Taken 03/13/21 09:00] lisinopril 2.5 mg PO DAILY #30 tab 03/27/21 [Rx Last Taken Unknown] Allergy/AdvReac Type Severity Reaction Status Date / Time codeine AdvReac Other Verified 03/10/21 07:47 Family History Grandmother Breast cancer Other Diabetes Surgical History History of D&C Social History household members: spouse, family and children number of children: 9 current occupation: Homemaker Smoking Status: Never smoker alcohol intake: never History 17 Elective abortions Hx Para 9 Spontaneous abortions 8 Hx # Term Pregnancies 9 Ectopic pregnancies Hx # Pregnancies Multiple births 0 # of living children 9 Visit Details Expected Delivery Route/Plan Plans ROS Constitutional Constitutional: Reports headache(s); Denies weakness Eyes Eyes: Reports other Details: photophobia ENT HEENT: Reports headache(s); Denies abnormal hearing, facial pain, nasal congestion or sinus pressure Cardiovascular Cardiovascular: Reports edema and palpitations Respiratory/Chest Respiratory/Chest: Reports other Details: chest tightness when lying down - she noted this also occurred post COVID19 infection earlier this year; coughs only after using incentive spirometer ; Denies dyspnea, dyspnea on exertion or shortness of breath at rest Gastrointestinal Gastrointestinal: Denies abdominal pain, nausea or vomiting Genitourinary Genitourinary: Reports other Details: Denies heavy lochia Musculoskeletal Musculoskeletal: Denies muscle weakness Neurologic Neurologic: Denies dizziness, other visual disturbances or weakness Psychiatric Psychiatric: Reports anxiety Physical Exam Const alert, oriented x3 and no apparent distress General Appearance: cooperative and comfortable HEENT normocephalic Eyes Eyes Narrative: no eyelid edema General Eye: normal appearance of both eyes Resp normal respiratory effort, normal air movement and clear to auscultation bilaterally Cardio regular rate, regular rhythm, S1 normal heart sound and S2 normal heart sound GI soft to palpation, non-tender and non-distended Assessment & Plan (1) Headache: QUALIFIERS: Headache type: unspecified Headache chronicity pattern: unspecified pattern Intractability: not intractable Qualified Code(s): R51.9 - Headache, unspecified PLAN: Improved following Acetaminophen PO and IV Toradol. No evidence of preeclampsia at this time, labs normal and LFTs, LDH normalized from prior BPs c/w stage I hypertension in hospital. Given elevated home BPs will treat with Lisinopril 2.5mg Continue home BP monitoring once daily. Follow up outpatient
== END 2021-03-27 23:40 | disposition home or self-care (01) ==
LOC: WPOUT 20:41 → WP 20:41
PROVIDERS: PCP Family Medicine; Visit Provider Obstetrics & Gynecology
DX: O90.89 Other complications of the puerperium, not elsewhere classified (principal); R51.9 Headache, unspecified; R03.0 Elevated blood-pressure reading, without diagnosis of hypertension
CPT/HCPCS: 96374; 36415; 80053; 83615; 84550; 85027; 99218; A4216; G0378

== ENCOUNTER → 2021-04-16 12:15 | Outpatient (CLI) | payer OTHER, SELFPAY ==
[2021-03-27 20:59] VITALS: BMI 31.1
[2021-04-16 12:50] LABS: Hematocrit 37.5 % (37-47); Hemoglobin 13.1 g/dL (12.0-15.0); Mean Corp Hgb Conc 34.9 g/dL (32-36); Mean Corpuscular Hgb 29.2 pg (27.0-32.0); Mean Corpuscular Volume 83.5 fL (81-99); Mean Platelet Vol. 8.7 fl (6.2-12.0); Platelet Count 185 K/mm3 (150-450); RBC Distribution Width CV 13.5 % (11.6-14.6); RBC Distribution Width SD 41.1 fl (35.1-43.9); Red Blood Count 4.49 M/mm3 (4.2-5.4); White Blood Count 6.3 K/mm3 (4.4-11.0)
[2021-04-16 13:19] LABS: ALB/GLOB Ratio 1.1 RATIO (0.9-2.4); AST(SGOT) 26 U/L (15-37); Alanine Aminotransfer ALT/SGPT 46 U/L (13-56); Albumin, Serum 4.1 g/dL (3.2-5.0); Alkaline Phosphatase 95 U/L (45-117); Anion Gap 7 (5-15); BUN 13 mg/dL (7-18); BUN/Creat Ratio 18.2 RATIO (10-20); Calcium,Total 9.2 mg/dL (8.5-10.1); Chloride 100 mmol/L (98-107); Creatinine, Serum 0.72 mg/dL (0.55-1.02); EST Glomerular Filtration Rate 96 mL/min (>60); Est Glom Filt Rate - Afr Amer 116 mL/min (>60); Globulin 3.7 g/dL (2.2-4.2); Glucose 107 mg/dL (74-106); LDH 189 U/L (84-246); Potassium 4.2 mmol/L (3.5-5.1); Protein, Total 7.8 g/dL (6.4-8.2); Sodium Level 134 mmol/L (136-145)
== END ==
PROVIDERS: PCP Family Medicine; Visit Provider Student in an Organized Health Care Education/Training Program
DX: O14.95 Unspecified pre-eclampsia, complicating the puerperium (principal)
CPT/HCPCS: 36415; 80053; 83615; 85027

== ENCOUNTER → 2021-05-14 | Outpatient (CLI) | payer OTHER, SELFPAY ==
[2021-03-27 20:59] VITALS: BMI 31.1
== END | disposition home or self-care (01) ==
PROVIDERS: PCP Family Medicine; Referring Provider Otolaryngology; Visit Provider Otolaryngology
DX: J32.9 Chronic sinusitis, unspecified (principal)
CPT/HCPCS: 87070; 87077; 87186; 87205

== ENCOUNTER → 2021-05-24 | Outpatient (CLI) | payer OTHER, SELFPAY ==
[2021-03-27 20:59] VITALS: BMI 31.1
== END | disposition home or self-care (01) ==
LOC: LABSPEC 16:26
PROVIDERS: PCP Family Medicine; Referring Provider Otolaryngology; Visit Provider Otolaryngology
DX: J32.9 Chronic sinusitis, unspecified (principal)
CPT/HCPCS: 87070; 87077; 87186; 87205

== ENCOUNTER → 2021-06-15 11:14 | Outpatient (CLI) | payer OTHER, SELFPAY ==
[2021-06-15 14:40] LABS: Hemoglobin A1c 4.6 % (3.8-5.6)
== END ==
PROVIDERS: PCP Family Medicine; Visit Provider Obstetrics & Gynecology
DX: Z86.32 Personal history of gestational diabetes (principal)
CPT/HCPCS: 36415; 83036

== ENCOUNTER → 2021-08-18 08:44 | Outpatient (CLI) | payer OTHER, SELFPAY | PROVIDERS: PCP Family Medicine; Referring Provider Internal Medicine Pulmonary Disease; Visit Provider Internal Medicine Pulmonary Disease | DX: U07.1 COVID-19 (principal); J45.909 Unspecified asthma, uncomplicated | CPT/HCPCS: 87635; C9803; U0005; U0003 ==

== ENCOUNTER 2021-08-18 16:51 | Outpatient (CLI) | payer OTHER, SELFPAY ==
[2021-08-18] MEDS: 0.9% Saline Lock 10 ML Syringe IV (17:06)
[2021-08-18 17:08] VITALS: BP 139/88; PULSE 70; RESP 16; TEMP 36.8; O2SAT 100; BMI 29.0
[2021-08-18 18:00] VITALS: BP 135/70; PULSE 70; RESP 18; TEMP 36.8; O2SAT 100
[2021-08-18 18:35] VITALS: BP 136/72; PULSE 73; RESP 16; TEMP 37.1; O2SAT 100
--- NOTE | 2021-08-18 18:41 | NURSING ---
Addendum entered by Laura Moe 08/18/21 18:42: RATE CHANGED AT 1800. Original Note: PT C/O OF ANXIETY. HEART PALPITATIONS. EMOTIONAL SUPPORT OFFERED. PT REQUESTED RATE OF INFUSION BE SLOWED. RATE CHANGED TO 150CC/HR.
[2021-08-18 19:34] VITALS: BP 141/88; PULSE 74; RESP 16; TEMP 36.9; O2SAT 100
== END 2021-08-18 19:36 | disposition home or self-care (01) ==
LOC: MS3OUT 16:52 → MS3 16:52
PROVIDERS: PCP Family Medicine; Referring Provider Nurse Practitioner Adult Health; Visit Provider Nurse Practitioner Adult Health
DX: Z23 Encounter for immunization (principal); U07.1 COVID-19
CPT/HCPCS: J7050; M0245; Q0245; A4216

== ENCOUNTER 2021-09-13 13:00 | Outpatient (RCR) | payer OTHER, SELFPAY | END 2021-09-21 23:59 | LOC: NS 13:00 | PROVIDERS: PCP Family Medicine; Visit Provider Obstetrics & Gynecology | DX: E66.9 Obesity, unspecified (principal); R73.03 Prediabetes; Z68.30 Body mass index [BMI] 30.0-30.9, adult; Z86.32 Personal history of gestational diabetes | CPT/HCPCS: 97802; 97803 ==

== ENCOUNTER → 2021-09-20 17:48 | Outpatient (CLI) | payer OTHER, SELFPAY ==
--- NOTE | 2021-09-20 18:00 | CT_ITS ---
STUDY: CT MAXILLOFACIAL SINUSES REASON FOR EXAM: Female, 41 years old. SINUSITIS RADIATION DOSAGE (If Supplied By Facility): CTDIvol = ( 33.06 ) mGy, DLP = ( 858.64 ) mGycm TECHNIQUE: The patient was scanned in a multi detector CT scanner. High resolution axial imaging was performed without the administration of intravenous contrast material. Sagittal and coronal images were reconstructed. Individualized dose optimization techniques were used for this CT. COMPARISON: None. FINDINGS: FRONTAL SINUSES: Normal aeration, without mucosal inflammatory disease. ETHMOIDAL SINUSES: Mild degree of mucosal thickening of the ethmoid sinuses. MAXILLARY SINUSES: 84 level is seen in the left maxillary sinus. Small air-fluid level in the right maxillary sinus. SPHENOIDAL SINUSES: If the levels are seen in the right and left sphenoid sinus. There is patency of the bilateral maxillary infundibuli with normal uncinate processes, ethmoid bullae, and hiatus semilunaris. There is evidence of prior resection of the right ostiomeatal complex. Normal bilateral middle turbinates. There is hypertrophy of the left inferior nasal turbinate. Normal midline nasal septum. There is patency of the bilateral nasal airways. The visualized osseous structures are normal. The visualized bilateral orbital contents are normal. CT/Sinus/Facial Bone IMPRESSION: Bilateral maxillary and sphenoid sinusitis. Mucosal thickening of the ethmoid sinuses. Electronically Signed: Vin Gonsalves MD at 13:03 EST , Service support ,
== END ==
PROVIDERS: PCP Family Medicine; Referring Provider Otolaryngology; Visit Provider Otolaryngology
DX: J32.9 Chronic sinusitis, unspecified (principal)
CPT/HCPCS: 70486

== ENCOUNTER 2022-02-18 21:38 | Emergency (ER) | payer OTHER, SELFPAY ==
[2022-02-18 21:39] VITALS: BP 132/64; PULSE 84; RESP 14; TEMP 36.6; O2SAT 99; BMI 31.9
--- NOTE | 2022-02-18 22:05 | CT_ITS ---
We are attempting to reach an attending provider to discuss findings. An addendum with communication details will be sent when the communication is complete. INDICATION: Left flank pain EXAMINATION: CT ABDOMEN AND PELVIS WITHOUT CONTRAST - CT Abdomen And Pelvis W/O Contrast Injection TECHNIQUE: Helically acquired images were obtained of the abdomen and pelvis without oral or IV contrast. A radiation dose optimization technique was used for this scan. IV Contrast dosage and agent: None. Oral contrast: None. COMPARISON: CT chest 03/15/2021. FINDINGS: LOWER CHEST: Calcified granuloma left lower lobe and calcifications adjacent to the esophagus consistent with prior granulomatous infection. No cardiomegaly or pericardial effusion. LIVER: Homogeneous. No focal mass. GALLBLADDER AND BILIARY TREE: No calcified gallstones. No gallbladder distension or wall edema. No intra- or extrahepatic biliary ductal dilation. PANCREAS: No focal cystic or solid mass. SPLEEN: Craniocaudal measurement of 16.4 cm consistent with splenomegaly. ADRENAL GLANDS: No nodules. KIDNEYS, URETERS and BLADDER: Normal renal size and position. No mass. No hydronephrosis. No perinephric stranding densities. Bladder is unremarkable. Retroaortic left renal vein noted. PERITONEUM: Abnormal increased free fluid in the dependent portion of the cul-de-sac shows heterogeneous density with more dependent increased density suggesting hemorrhage. 5.7 x 4.7 cm. No other fluid collection. BOWEL: Normal appendix. No abnormally distended bowel loops or air fluid levels. No wall thickening or mass. No focal inflammatory changes. LYMPH NODES: No enlarged mesenteric or retroperitoneal lymph nodes. VESSELS: Aorta is non-dilated. REPRODUCTIVE ORGANS: Poorly delineated uterus and ovaries on this unenhanced CT, obscured by surrounding small bowel. Uterus does appear to be enlarged. Prominent periuterine vessels. ABDOMINAL WALL: No discrete abdominal or pelvic wall hernia. BONES: Sacralization of L5 on the right. No degenerative disc or endplate changes suggested lumbar spine. There are some degenerative changes of the symphysis pubis articulation. CT/Abdomen/Pelvis without Cont IMPRESSION: Heterogeneous fluid in the posterior dependent pelvis with layering hyperdensity suggesting hemorrhage, roughly 5.7 x 4.7 cm. Correlation with pelvic ultrasound is recommended. Enlarged uterus and periuterine vessels. Splenomegaly with otherwise normal appearance of the upper abdomen. Electronically Signed: Jonah Corral DO at 23:40 EDT ,
--- NOTE | 2022-02-18 22:06 | ED.VIS.FEGU ---
HPI HPI - Female History of Present Illness Chief Complaint: Flank Pain Narrative Narrative: 41-year-old female with no history of kidney stones presenting with left flank pain that radiates to the left groin. Patient states that she has associated nausea with this. She denies dysuria, hematuria, urinary frequency. Patient states that the pain comes in waves and is colicky in nature. No diarrhea or constipation. No vaginal complaints. No fever, chills. Patient has no concern for . PFSH PFSH Medical History Anxiety Asthma Chronic neck and back pain Headache History of endometritis history of parametritis History of pre-eclampsia Personal history of gestational diabetes Pre-eclampsia Severe pre-eclampsia affecting puerperium Shoulder pain Sinusitis Superficial varicosities (spontaneous vaginal delivery) Home Medications Arnuity Ellipta 1 inh INHALATION DAILY 03/10/21 [History Last Taken 03/14/21 09:00] [id number] 1 tab PO DAILY 03/10/21 [History Last Taken 03/13/21 09:00] ondansetron 4 mg PO Q8H PRN #10 tab 02/19/22 [Rx Last Taken Unknown] Allergy/AdvReac Type Severity Reaction Status Date / Time codeine AdvReac Other Verified 02/18/22 21:39 Family History Grandmother Breast cancer Other Diabetes Surgical History History of D&C Social History household members: spouse, family and children number of children: 9 current occupation: Homemaker Smoking Status: Never smoker alcohol intake: never ROS ROS ED Constitutional Constitutional ED: Denies chills or fever(s) Eyes Eyes: Denies blurry vision or diplopia ENT ENT ED: Denies rhinorrhea or sore throat Cardiovascular Cardiovascular: Denies chest pain or palpitations Respiratory/Chest Respiratory/Chest: Denies cough or dyspnea Gastrointestinal Gastrointestinal: Denies abdominal pain or nausea Genitourinary Genitourinary ED: Denies dysuria, hematuria or urinary frequency Musculoskeletal Musculoskeletal: Denies myalgias Integumentary Denies rash Neurologic Neurologic: Denies headache(s) or weakness Psychiatric Psychiatric: Denies anxiety or depression EXAM Physical Exam Const Vital Signs: 02/18/22 21:39 02/19/22 00:45 02/19/22 02:07 Temperature 97.8 F Temperature Source Temporal Pulse Rate 84 Respiratory Rate 14 16 16 Blood Pressure 132/64 H Blood Pressure Mean 86 Pulse Ox 99 Oxygen Delivery Method Room Air 02/19/22 03:33 Temperature Temperature Source Pulse Rate 72 Respiratory Rate 16 Blood Pressure Blood Pressure Mean Pulse Ox 97 Oxygen Delivery Method Positive well nourished General Appearance ED: NAD; Negative for pallor HEENT Reports moist mucous membranes Negative for trauma Eyes PERRL and EOMs intact bilaterally Resp normal respiratory effort and clear to auscultation bilaterally Cardio regular rate and regular rhythm GI Palpation: tender LLQ no CVA tenderness Extremity normal to inspection and full ROM General Extremety ED: Negative for edema or tenderness General Extremity: Negative for edema Neuro oriented x3 Sensorium / Orientation: alert Psych mental status grossly normal Skin no rashes or lesions noted and no wounds General Skin Exam: Negative for jaundice or pallor MDM MDM MDM Narrative Medical decision making narrative: Patient with left-sided flank pain and left lower abdominal pain which was acute in onset. She denies any urinary complaints, constipation, diarrhea. She does not have concern for . I obtained initial blood work and her CBC and BMP are unremarkable with exception of potassium of 3.2. Urinalysis negative for infection or hematuria. She did have a noncontrast CT to look for possibility of stone due to the flank pain however this does not identify any kidney or ureteral stone. There is no hydronephrosis. I do identify an area of heterogeneous fluid in the posterior dependent pelvis with layering hyperdensity suggesting hemorrhage, roughly 5.7 x 4.7 cm. Transvaginal ultrasound was recommended. This does show an ovarian cyst on the left however there is no fluid in the pelvis. I suspect that most she had a hemorrhagic or ruptured ovarian cyst. Patient counseled to use NSAIDs/Tylenol as well as heating pad for pain. She is given return precautions. Patient stable for discharge. Impression: 1. Left flank pain 2. Left ovarian cyst 3. Nausea Lab Data Attestation: I reviewed the patient's lab results. Labs: Laboratory Results - last 24 hr 02/18/22 02/18/22 02/18/22 21:48 21:55 21:55 WBC 10.2 RBC 4.01 L Hgb 12.8 Hct 34.7 L MCV 86.5 MCH 31.9 MCHC 36.9 H RDW Std Deviation 39.[address] 12.4 Plt Count 171 MPV 9.4 Immature Gran % (Auto) 0.600 Neut % (Auto) 79.2 H Lymph % (Auto) 15.3 L [place] % (Auto) 4.2 Eos % (Auto) 0.5 Baso % (Auto) 0.2 Absolute Neuts (auto) 8.1 H Absolute Lymphs (auto) 1.56 Nucleated RBC % 0 Sodium 134 L Potassium 3.2 L Chloride 101 Carbon Dioxide 26.0 Anion Gap 7 BUN 11 Creatinine 0.60 Estim Creat Clear Calc 115.51 Est GFR (MDRD) Af Amer 142 Est GFR (MDRD) Non-Af 117 BUN/Creatinine Ratio 18.4 Glucose 136 H Calcium 8.6 HCG, Quant Urine Color Straw Urine Clarity Clear Urine pH 6.5 Ur Specific [place] 1.005 Urine Protein Negative Urine Glucose (UA) Normal Urine Ketones Negative Urine Occult Blood Negative Urine Nitrite Negative Urine Bilirubin Negative Urine Urobilinogen Normal Ur Leukocyte Esterase Negative Urine RBC 0 SEEN Urine WBC 0 SEEN Ur Squamous Epith Cells 0 SEEN Urine Bacteria 0 SEEN Urine Mucus 0 SEEN 02/18/22 21:55 WBC RBC Hgb Hct MCV MCH MCHC RDW Std Deviation RDW Coeff of Ct Plt Count MPV Immature Gran % (Auto) Neut % (Auto) Lymph % (Auto) [place] % (Auto) Eos % (Auto) Baso % (Auto) Absolute Neuts (auto) Absolute Lymphs (auto) Nucleated RBC % Sodium Potassium Chloride Carbon Dioxide Anion Gap BUN Creatinine Estim Creat Clear Calc Est GFR (MDRD) Af Amer Est GFR (MDRD) Non-Af BUN/Creatinine Ratio Glucose Calcium HCG, Quant < 1 Urine Color Urine Clarity Urine pH Ur Specific [place] Urine Protein Urine Glucose (UA) Urine Ketones Urine Occult Blood Urine Nitrite Urine Bilirubin Urine Urobilinogen Ur Leukocyte Esterase Urine RBC Urine WBC Ur Squamous Epith Cells Urine Bacteria Urine Mucus Radiography Diagnostic Testing: Clinical Impression(s) from Imaging Studies Abdomen/Pelvis CT 02/18/22 22:05 IMPRESSION: Heterogeneous fluid in the posterior dependent pelvis with layering hyperdensity suggesting hemorrhage, roughly 5.7 x 4.7 cm. Correlation with pelvic ultrasound is recommended. Enlarged uterus and periuterine vessels. Splenomegaly with otherwise normal appearance of the upper abdomen. Electronically Signed: Jonah Corral DO at 23:40 EDT , ADDENDUM: 02/19/22 0002 IMPRESSION: Heterogeneous fluid in the posterior dependent pelvis with layering hyperdensity suggesting hemorrhage, roughly 5.7 x 4.7 cm. Correlation with pelvic ultrasound is recommended. Enlarged uterus and periuterine vessels. Splenomegaly with otherwise normal appearance of the upper abdomen. N.B. : The above Results were Read Back by Jonah Corral DO to Kevin Pulliam DO, and understanding confirmed on 02/18/2022 23:55:48 (ET). Electronically Signed: Jonah Corral DO at 23:40 EDT , Transvaginal US 02/18/22 23:41 IMPRESSION: Left ovarian cyst. Electronically Signed: Lew Fernandez MD at 3:01 EDT , Discharge Plan Triage Chief Complaint: Flank Pain ED Provider: Kevin Pulliam Dx/Rx/DC Orders Instructions: ED Ovarian Cyst Prescriptions: New ondansetron 4 mg tablet,disintegrating 4 mg PO Q8H PRN (Reason: nausea and vomiting) Qty: 10 RF: 0 No Action wzwbhzax-dhd-Fw-FA 1 mg Tablet 1 tab PO DAILY RF: 0 Arnuity Ellipta 200 mcg/actuation Blister With Device 1 inh INHALATION DAILY RF: 0 Primary Care Provider: Rob Alvarez Referrals: Rob Alvarez MD [Primary Care Provider] - Disposition Disposition: Home, Self Care Discharge Date/Time: 02/19/22 03:34
[2022-02-18 22:14] LABS: Bacteria 0 SEEN /hpf (None Seen); Mucous, Urine 0 SEEN /hpf (<or=2+); Red Blood Cells-Urine 0 SEEN /hpf (0-5); Squamous Epithelial Cells - UA 0 SEEN /hpf (5-10); White Blood Cells 0 SEEN /hpf (0-5)
[2022-02-18] MEDS: Ondansetron 4 MG/2 ML Vial IV (22:16)
[2022-02-18] MEDS: Ketorolac 15 MG/ML Vial IV (22:19)
[2022-02-18 22:34] LABS: Absolute Lymphocyte Count 1.56 X10^3/uL (0.83-4.51); Absolute Neutrophil Count 8.1 X10^3/uL (2.0-7.7); Basophil# 0.02 X10^3/uL; Basophil% 0.2 % (0-1); Eosinophil# 0.05 X10^3/uL; Eosinophils% 0.5 % (0-5); Hematocrit 34.7 % (37-47); Hemoglobin 12.8 g/dL (12.0-15.0); Lymphocyte # 1.56 X10^3/ul (0.83-4.51); Lymphocyte % 15.3 % (19-41); Mean Corp Hgb Conc 36.9 g/dL (32-36); Mean Corpuscular Hgb 31.9 pg (27.0-32.0); Mean Corpuscular Volume 86.5 fL (81-99); Mean Platelet Vol. 9.4 fl (6.2-12.0); Monocyte# 0.43 X10^3/uL; Monocyte% 4.2 % (0-10); NRBC Flagged by Analyzer 0 % (0-5); Neutrophil # 8.09 X10^3/uL (2.7-7.7); Neutrophil % 79.2 % (47-70); Platelet Count 171 K/mm3 (150-450); RBC Distribution Width CV 12.4 % (11.6-14.6); Red Blood Count 4.01 M/mm3 (4.2-5.4); White Blood Count 10.2 K/mm3 (4.4-11.0)
[2022-02-18 22:35] LABS: Color, Urine Straw (Yellow); Glucose, Dipstick Normal (Normal); Ketone-Dipstick Negative (Negative); Leukocyte Esterase-Dipstick Negative /ul (Negative); Nitrite-Dipstick Negative (Negative); Occult Blood-Urine Negative /ul (Negative); Protein-Dipstick Negative (Negative); Specific Gravity, Urine 1.005 (1.002-1.030); Urine Bilirubin Dipstick Negative (Negative); Urine Clarity Clear (Clear); Urine Urobilinogen Normal (Normal); Urine pH 6.5 (5.0 - 8.0)
[2022-02-18 22:49] LABS: Anion Gap 7 (5-15); BUN 11 mg/dL (7-18); BUN/Creat Ratio 18.4 RATIO (10-20); Calcium,Total 8.6 mg/dL (8.5-10.1); Chloride 101 mmol/L (98-107); EST Glomerular Filtration Rate 117 mL/min (>60); Est Glom Filt Rate - Afr Amer 142 mL/min (>60); Estimated Creatinine Clearance 115.51 ml/min; Glucose 136 mg/dL (74-106); Potassium 3.2 mmol/L (3.5-5.1); Sodium Level 134 mmol/L (136-145)
--- NOTE | 2022-02-18 23:41 | US_ITS ---
STUDY: ULTRASOUND TRANSVAGINAL CLINICAL: Female, 41 years old. left pelvic pain TECHNIQUE: Transvaginal COMPARISON: 05/01/2016 FINDINGS: Normal uterine size measuring 9.0 x 5.6 cm cm in maximal craniocaudal dimension. There are no myometrial masses. Normal endometrial thickness measuring mm. There are no endometrial masses, and there is no fluid in the endometrial cavity. Normal uterine cervix. Normal right ovary, measuring 3.03 x 1.27 cm. There are multiple follicles without a dominant cyst. There is vascularity. The left ovary, measuring 7.21 x 4.12 cm. There are multiple follicles with a dominant cyst 4.8 cm. There is vascularity. There is no free fluid in the pelvis. Polycystic ovary disease: No. US/Transvaginal Non- IMPRESSION: Left ovarian cyst. Electronically Signed: Lew Fernandez MD at 3:01 EDT ,
[2022-02-19 00:04] LABS: hCG Titer Quant., Serum < 1 mIU/mL (1-3)
[2022-02-19 00:45] VITALS: RESP 16
[2022-02-19 02:07] VITALS: RESP 16
[2022-02-19 03:33] VITALS: PULSE 72; RESP 16; O2SAT 97
== END 2022-02-19 03:34 | disposition home or self-care (01) ==
PROVIDERS: Emergency Provider Student in an Organized Health Care Education/Training Program; PCP Family Medicine; Visit Provider Student in an Organized Health Care Education/Training Program
DX: N83.202 Unspecified ovarian cyst, left side (principal); J45.909 Unspecified asthma, uncomplicated; G89.29 Other chronic pain; M54.2 Cervicalgia; M54.9 Dorsalgia, unspecified
CPT/HCPCS: 74176; 76830; 80048; 81001; 84702; 85025; 96374; 96375; 99282; A4216; J2405

== ENCOUNTER → 2022-04-23 | Outpatient (CLI) | payer OTHER, SELFPAY ==
[2022-04-23 10:43] LABS: Estradiol 167.2 pg/mL
[2022-04-25 08:11] LABS: Progesterone Level 14.45 ng/mL (See Comment)
== END | disposition home or self-care (01) ==
LOC: MTLAB 09:39
PROVIDERS: PCP Family Medicine; Referring Provider Obstetrics & Gynecology; Visit Provider Obstetrics & Gynecology
DX: R10.2 Pelvic and perineal pain (principal); N83.299 Other ovarian cyst, unspecified side
CPT/HCPCS: 36415; 82670; 84144

== ENCOUNTER → 2024-03-22 | Outpatient (CLI) | payer OTHER, SELFPAY ==
--- NOTE | 2024-03-22 09:18 | BI_ITS ---
MAMMOGRAPHY - BILATERAL SCREENING REASON FOR EXAM: Female, 43 years old. Routine annual screening examination. PERTINENT HISTORY: Grandmother with breast cancer. TECHNIQUE: Digital bilateral breast minnie (3D mammographic acquisition) in the CC and MLO projections. 2-D mediolateral oblique (MLO) and craniocaudad (CC) views of both breasts were obtained. CAD: Full Field Digital Mammography with Computer Added Detection was performed. COMPARISON: None. Baseline examination. FINDINGS: Breast Composition: There are scattered areas of fibroglandular density. There are no dominant masses or suspicious calcifications. No other significant abnormalities are identified. BI/SCRN MAMM (CAD)W/MINNIE BILAT IMPRESSION: Negative screening mammogram. Yearly followup mammogram recommended. (A) ASSESSMENT CATEGORY: BIRADS Category 1: Negative. A letter regarding these results will be sent to the patient by the facility within 30 days. Approximately 10% of breast cancers are not detected by mammography. A normal mammogram should not delay biopsy of a clinically suspicious abnormality. [id number] Electronically Signed: Vin Gonsalves MD at 9:51 EDT ,
== END | disposition home or self-care (01) ==
PROVIDERS: PCP Family Medicine; Referring Provider Obstetrics & Gynecology; Visit Provider Obstetrics & Gynecology
DX: Z12.31 Encounter for screening mammogram for malignant neoplasm of breast (principal)
CPT/HCPCS: 77063; 77067

== ENCOUNTER → 2024-04-19 | Outpatient (CLI) | payer OTHER, SELFPAY ==
--- NOTE | 2024-04-19 06:57 | MRI_ITS ---
STUDY: MRI BRAIN WITH AND WITHOUT CONTRAST (ATTENTION INTERNAL AUDITORY CANALS - I.A.C.''s) REASON FOR EXAM: Female, 43 years old. DIZZINESS TECHNIQUE: Standardized multiplanar fat and water weighted pulse sequences were obtained. IV 15ml clariscan was administered for the contrast portion of the examination. COMPARISON: CT the brain March 12, 2024 FINDINGS: Normal bilateral temporal bones. Normal bilateral internal auditory canals. There is no demonstrated intracanalicular or cisternal vestibular schwannoma (acoustic neuroma). There is no enhancement of the bilateral VIIth or VIIIth cranial nerves. Normal bilateral cochlea, vestibules and semicircular canals. Normal size of the ventricles and extra-axial spaces for the patient''s age. Normal white matter tracts of the supratentorial brain. Normal bilateral basal ganglia. Normal thalami. Normal flow voids within the major intracranial circulation suggesting patency by spin echo criteria. Normal venous enhancement. There is no enhancing intra-axial or extra-axial abnormality. There is no extra-axial fluid accumulation. Normal sella turcica, pituitary gland, infundibular stalk, optic chiasm and hypothalamus. Normal tectal plate and pineal gland. Normal midbrain, deloris and medulla. Normal cerebellum. Normal basal cisterns. No demonstrated orbital abnormality, within the constraints of a routine brain study. Normal visualized paranasal sinuses. Normal calvarium and skull base. Normal visualized soft tissue structures. Normal visualized upper cervical spine. MRI/Brain W/WO Contrast IMPRESSION: Normal unenhanced and enhanced MRI of the bilateral internal auditory canals (I.A.C''s). Electronically Signed: Nadir Belle MD at 16:16 EDT ,
[2024-04-19 09:10] LABS: Hematocrit 35.4 % (37-47); Hemoglobin 12.2 g/dL (12.0-15.0); Mean Corp Hgb Conc 34.5 g/dL (32-36); Mean Corpuscular Hgb 30.5 pg (27.0-32.0); Mean Corpuscular Volume 88.5 fL (81-99); Mean Platelet Vol. 10.3 fl (6.2-12.0); Platelet Count 152 K/mm3 (150-450); RBC Distribution Width CV 13.3 % (11.6-14.6); RBC Distribution Width SD 43.1 fl (35.1-43.9)
[2024-04-19 09:37] LABS: ALB/GLOB Ratio 1.1 RATIO (0.9-2.4); AST(SGOT) 18 U/L (15-37); Alanine Aminotransfer ALT/SGPT 23 U/L (13-56); Albumin, Serum 3.8 g/dL (3.2-5.0); Alkaline Phosphatase 55 U/L (45-117); Anion Gap 4 (5-15); BUN 11 mg/dL (7-18); BUN/Creat Ratio 17.7 RATIO (10-20); Calcium,Total 9.4 mg/dL (8.5-10.1); Chloride 106 mmol/L (98-107); Creatinine, Serum 0.62 mg/dL (0.55-1.02); EST Glomerular Filtration Rate 111 mL/min (>60); Est Glom Filt Rate - Afr Amer 134 mL/min (>60); Globulin 3.5 g/dL (2.2-4.2); Glucose 108 mg/dL (74-106); Potassium 3.8 mmol/L (3.5-5.1); Protein, Total 7.3 g/dL (6.4-8.2); Sodium Level 139 mmol/L (136-145)
[2024-04-19 09:42] LABS: Hemoglobin A1c 4.6 % (3.8-5.6)
== END | disposition home or self-care (01) ==
PROVIDERS: PCP Family Medicine; Referring Provider Otolaryngology; Visit Provider Otolaryngology
DX: R42 Dizziness and giddiness (principal); N92.0 Excessive and frequent menstruation with regular cycle; Z86.32 Personal history of gestational diabetes
CPT/HCPCS: 36415; 70553; 80053; 83036; 85027; A9575

== ENCOUNTER 2024-08-11 07:56 | Emergency (ER) | payer OTHER, SELFPAY ==
[2024-08-11 07:57] VITALS: BP 115/62; PULSE 70; RESP 16; TEMP 35.7; O2SAT 100; BMI 27.2
--- NOTE | 2024-08-11 08:19 | US_ITS ---
INDICATION: vaginal bleeding 12 weeks EXAMINATION: Ultrasound US OB Transvaginal TECHNIQUE: Transvaginal (for optimal evaluation of the adnexa) pelvic ultrasound was performed. Grayscale, spectral waveform, and color flow Doppler evaluation of the adnexa. COMPARISON: February 19, 2022 LMP: [May 26, 2024 corresponding to gestational age of 11 weeks and 0 days. FINDINGS: UTERUS: 13.2 x 7.1 x 9.5 cm. RIGHT OVARY: 4.6 x 2.3 x 2.7 cm. Normal. LEFT OVARY: 3.2 x 2.3 x 1.9 cm. Normal. FREE FLUID: There is minimal free fluid. INTRAUTERINE GESTATIONAL SAC: Single. The mean sac diameter measures 28.5 mm YOLK SAC: The healed sac measures 5.8 mm. POLE: No pole is identified. ESTIMATED GESTATION AGE: 8 weeks and 0 days. SUBCHORIONIC HEMORRHAGE: None. US/Transvaginal w/Preg US IMPRESSION: Findings suggestive of failure. Electronically Signed: Priyanka Lovett MD at 10:06 EDT ,
--- NOTE | 2024-08-11 08:21 | ED.VIS.FEGU ---
HPI HPI - Female History of Present Illness Chief Complaint: Vag Bld, Preg Informant: patient and spouse/S.O. Associated Symptoms P: 9 Ab: 9 Narrative Narrative: 44-year-old female presenting to the emergency room with vaginal bleeding with a chief complaint of possible miscarriage. Patient's not had any care as she is awaiting to see her CERTIFIED REGISTERED NURSE ANESTHETIST after they transition to a new office. Patient states that she began to have spotting last night and today increased bleeding with small clots. She notes a upper abdominal pressure and nausea. No urinary or bowel symptoms. Patient notes that this does feel different than prior miscarriages. She is a patient of Dr. Danita Nolan. She has required D&C in the past. [facility] Medical History Sinusitis Pre-eclampsia Severe pre-eclampsia affecting puerperium Personal history of gestational diabetes (spontaneous vaginal delivery) Asthma Superficial varicosities Anxiety Headache history of parametritis History of endometritis Chronic neck and back pain Shoulder pain History of pre-eclampsia Home Medications ?Medication ?Instructions ?Recorded ?Last Taken ?Type fluticasone furoate 200 1 inh inhalation DAILY SOB post 03/10/21 03/14/21 09:00 History mcg/actuation blister powder for COVID inhalation (Arnuity Ellipta) hedzwwjl-njt-Hl-FA 1 mg 1 tab PO DAILY 03/10/21 03/13/21 09:00 History tablet ondansetron 4 mg disintegrating 4 mg PO Q8H PRN nausea and 02/19/22 Unknown Rx tablet vomiting #10 tabs Allergy/AdvReac Type Severity Reaction Status Date / Time codeine AdvReac Other Verified 08/11/24 07:58 Family History Grandmother Breast cancer Other Diabetes Surgical History History of D&C Social History household members: spouse, family and children number of children: 9 current occupation: Homemaker Smoking Status: Never smoker alcohol intake: never ROS ROS ED Constitutional Constitutional ED: Denies chills, fever(s) or weight loss Eyes Eyes: Denies change in vision or diplopia ENT ENT ED: Denies ear pain, rhinorrhea or sore throat Cardiovascular Cardiovascular: Denies chest pain, orthopnea, palpitations or racing heartbeat Respiratory/Chest Respiratory/Chest: Denies cough, dyspnea or orthopnea Gastrointestinal Gastrointestinal: Reports nausea; Denies abdominal pain, diarrhea or vomiting Genitourinary Genitourinary ED: Reports other Details: vaginal bleeding cramping ; Denies dysuria, hematuria or urinary frequency Musculoskeletal Musculoskeletal: Denies arthralgias or myalgias Integumentary Denies abscess or rash Neurologic Neurologic: Denies headache(s) or weakness Psychiatric Psychiatric: Denies anxiety, depression, suicidal ideation or suicidal thoughts Endocrine Endocrinology: Denies polydipsia, polyphagia or polyuria Allergic/Immunologic Allergic/Immunologic ED: Denies mouth swelling, tongue swelling or urticaria EXAM Physical Exam Const Vital Signs: 08/11/24 07:57 08/11/24 09:57 08/11/24 11:00 Temperature 96.3 F L Temperature Source Temporal Pulse Rate 70 74 78 Respiratory Rate 16 16 Blood Pressure 115/62 120/62 132/85 H Blood Pressure Mean 79 81 100 Pulse Ox 100 99 98 Oxygen Delivery Method Room Air Room Air Room Air 08/11/24 11:14 Temperature 98 F Temperature Source Pulse Rate 78 Respiratory Rate 16 Blood Pressure 132/85 H Blood Pressure Mean 100 Pulse Ox 98 Oxygen Delivery Method Positive well nourished and well developed General Appearance ED: well developed HEENT Reports normocephalic, head/scalp atraumatic and moist mucous membranes Eyes PERRL and EOMs intact bilaterally Neck no lymphadenopathy, supple and no JVD Resp normal respiratory effort and clear to auscultation bilaterally Cardio regular rate, regular rhythm and no murmurs GI normal to inspection, nondistended, normoactive bowel sounds and non-tender Palpation: soft Back/Spine no CVA tenderness and normal ROM Extremity normal to inspection General Extremety ED: Negative for edema General Extremity: Negative for edema Neuro oriented x3 and CN's II-XII intact bilaterally Sensorium / Orientation: alert Motor Exam: strength 5/5 throughout Psych mental status grossly normal Mood & Affect: Negative for depressed or tearful Skin no rashes or lesions noted and no wounds MDM MDM MDM Narrative Medical decision making narrative: Differential diagnosis includes but not limited to incomplete miscarriage threatened miscarriage subchorionic hemorrhage sepsis infection Patient clinically appears well. Hemoglobin 12.4 beta-hCG 70432 she has been negative. Pelvic ultrasound performed with female nurse (Suzy) demonstrates some mild bleeding from the os with a small clot in the vaginal vault. The os is not significantly dilated. I do not appreciate significant tenderness. Pelvic ultrasound shows failure measuring at about 8 weeks. I spoke with the patient's CERTIFIED REGISTERED NURSE ANESTHETIST Dr. Danita Hernandez. As the appears to stop about 8 weeks and she is only 11 weeks RhoGAM will not be given. Dr. Jami hernandez did speak with the patient on the phone and will follow-up with the patient. Patient understands return instructions. Has been present for home-going instructions notes understanding History & Record Review Discussion w/independent historian: Patient and Significant other Lab Data Attestation: I reviewed the patient's lab results. Labs: Laboratory Results - last 24 hr 08/11/24 08:26 Hgb 12.4 Hct 35.0 L HCG, Quant 66719 H Serum , Qual Cancelled Blood Type B NEGATIVE Radiography Diagnostic Testing: Clinical Impression(s) from Imaging Studies Obstetrics Ultrasound 08/11/24 08:19 IMPRESSION: Findings suggestive of failure. Electronically Signed: Priyanka Lovett MD at 10:06 EDT , Discharge Plan Triage Chief Complaint: Vag Bld, Preg ED Provider: Gustabo Butler Dx/Rx/DC Orders Clinical Impression: Incomplete miscarriage, Vaginal bleeding Instructions: ED MISCARRIAGE Incomplete Prescriptions: No Action eznlxxot-wmp-Ot-FA 1 mg Tablet 1 tab PO DAILY Arnuity Ellipta 200 mcg/actuation Blister With Device 1 inh INHALATION DAILY ondansetron 4 mg tablet,disintegrating 4 mg PO Q8H PRN (Reason: nausea and vomiting) Qty: 10 0RF Primary Care Provider: Rob Alvarez Referrals: Rob Alvarez MD [Primary Care Provider] - Activity Restrictions/Additional Instructions: Dr. Nolan for follow up Print Language: Vietnamese Disposition Disposition: Home, Self Care Discharge Date/Time: 08/11/24 11:17
[2024-08-11 08:39] LABS: Hemoglobin 12.4 g/dL (12.0-15.0)
[2024-08-11 09:29] LABS: hCG Titer Quant., Serum 31751 mIU/mL (1-3)
[2024-08-11 09:57] VITALS: BP 120/62; PULSE 74; RESP 16; O2SAT 99
[2024-08-11 11:00] VITALS: BP 132/85; PULSE 78; O2SAT 98
[2024-08-11 11:14] VITALS: BP 132/85; PULSE 78; RESP 16; TEMP 36.6; O2SAT 98
== END 2024-08-11 11:17 | disposition home or self-care (01) ==
PROVIDERS: Emergency Provider Emergency Medicine; PCP Family Medicine; Visit Provider Emergency Medicine
DX: O03.4 Incomplete spontaneous abortion without complication (principal)
CPT/HCPCS: 76817; 84702; 85014; 85018; 86900; 86901; 99283; A4216; J2405